=== PATIENT | male | born 1955 | race Caucasian/White ===

== ENCOUNTER → 2019-04-01 | Outpatient (CLI) | payer OTHER ==
[2019-04-01 09:54] LABS: Basophils % (A) 1 %; Eosinophils # (A) 0.2 k/uL (0-0.7); Eosinophils % (A) 5 %; HCT 46.6 % (39.0-53.0); HGB 15.1 gm/dL (13.0-17.5); Lymphocytes # (A) 1.1 k/uL (1.0-4.8); Lymphocytes % (A) 27 %; MCH 31.3 pg (25.0-35.0); MCHC 32.3 g/dL (31.0-37.0); Mean Platelet Volume 7.4; Monocytes # (A) 0.4 k/uL (0-1.0); Monocytes % (A) 11 %; Neutrophils # (A) 2.1 k/uL (1.3-7.7); Neutrophils % (A) 53 %; Platelet Count 187 k/uL (150-450); RBC 4.81 m/uL (4.30-5.90); RDW 12.7 % (11.5-15.5); WBC 3.9 k/uL (3.8-10.6)
[2019-04-01 11:49] LABS: Erythrocyte Sedimentation Rate 2 mm/hr (0-15)
[2019-04-01 16:49] LABS: Rheumatoid Factor 6 IU/mL (0-15)
[2019-04-01 16:57] LABS: Vitamin D 25 Hydroxy 51.3 ng/mL (30.0-100.0)
[2019-04-01 18:17] LABS: ALT 20 U/L (10-49); AST 23 U/L (14-35); C Reactive Protein <0.4 mg/dL (0.0-0.8); Calcium 8.9 mg/dL (8.7-10.3); Carbon Dioxide 26.7 mmol/L (21.6-31.8); Chloride 105 mmol/L (96-109); Creatine Kinase 157 U/L (35-257); Glucose 94 mg/dL (70-110); Potassium 4.7 mmol/L (3.5-5.5); Sodium 139 mmol/L (135-145); Uric Acid 5.1 mg/dL (3.7-8.7)
[2019-04-02 08:49] LABS: Angiotensin-1 Converting Enz. 84 U/L (8-52)
[2019-04-02 12:50] LABS: HLA B27 POSITIVE
[2019-04-07 08:29] LABS: Cyclic Citrullinated Pep IgG 6
== END | disposition home or self-care (01) ==
LOC: LABWHC1 08:45
PROVIDERS: ATTEND Orthopaedic Surgery
DX: M65.841 Other synovitis and tenosynovitis, right hand (principal); M65.842 Other synovitis and tenosynovitis, left hand; M65.319 Trigger thumb, unspecified thumb; M65.321 Trigger finger, right index finger; M65.331 Trigger finger, right middle finger
CPT/HCPCS: 36415; 80048; 82164; 82306; 82550; 83520; 84439; 84443; 84450; 84460; 84550; 85025; 85652; 86038; 86140; 86200; 86431; 86812

== ENCOUNTER 2019-04-22 21:46 | Inpatient (IN) | payer OTHER ==
[2019-04-22] MEDS ORDERED: SODIUM CHLORIDE 0.9% 1,000 ML IV STA (22:14)
--- NOTE | 2019-04-22 22:16 | ED ---
Arrhythmia/Palpitations HPI - General Chief Complaint: Arrhythmia/Palpitations Stated Complaint: Heart Racing Time Seen by Provider: 04/22/19 22:13 Source: patient, RN notes reviewed, old records reviewed Mode of arrival: wheelchair Limitations: no limitations - History of Present Illness Initial Comments: This is a 63-year-old male the ER for evaluation. Patient presents today for palpitations and PVCs. Patient has no chest pain no shortness of breath. Symptoms began morning and episodic throughout the day. No provocation factors. No chest pain. No current shortness of breath no fevers cough or congestion and he has had no recent drug or alcohol abuse MD Complaint: "heart racing", palpitations -: unknown Context: occurred during rest Associated Symptoms: denies other symptoms - Related Data Home Medications Medication Instructions Recorded Confirmed No Known Home Medications 04/22/19 04/22/19 Allergies Allergy/AdvReac Type Severity Reaction Status Date / Time No Known Allergies Allergy Verified 04/22/19 21:57 Review of Systems ROS Statement: Those systems with pertinent positive or pertinent negative responses have been documented in the HPI. ROS Other: All systems not noted in ROS Statement are negative. Past Medical History Past Medical History: Rheumatoid Arthritis (RA) Additional Past Medical History / Comment(s): hypoglycemia, hx. colon polyps History of Any Multi-Drug Resistant Organisms: None Reported Past Surgical History: Orthopedic Surgery Additional Past Surgical History / Comment(s): arthroscopies both knees Past Anesthesia/Blood Transfusion Reactions: No Reported Reaction Past Psychological History: No Psychological Hx Reported Smoking Status: Never smoker Past Alcohol Use History: Occasional Past Drug Use History: None Reported General Exam Limitations: no limitations General appearance: alert, in no apparent distress Head exam: Present: atraumatic, normocephalic, normal inspection Eye exam: Present: normal appearance, PERRL, EOMI. Absent: scleral icterus, conjunctival injection, periorbital swelling ENT exam: Present: normal exam, mucous membranes moist Neck exam: Present: normal inspection. Absent: tenderness, meningismus, lymphadenopathy Respiratory exam: Present: normal lung sounds bilaterally. Absent: respiratory distress, wheezes, rales, rhonchi, stridor Cardiovascular Exam: Present: normal rhythm, tachycardia, normal heart sounds. Absent: systolic murmur, diastolic murmur, rubs, gallop, clicks GI/Abdominal exam: Present: soft, normal bowel sounds. Absent: distended, tenderness, guarding, rebound, rigid Extremities exam: Present: normal inspection, full ROM, normal capillary refill. Absent: tenderness, pedal edema, joint swelling, calf tenderness Back exam: Present: normal inspection Neurological exam: Present: alert, oriented X3, CN II-XII intact Psychiatric exam: Present: normal affect, normal mood Skin exam: Present: warm, dry, intact, normal color. Absent: rash Course Vital Signs 04/22/19 04/22/19 04/22/19 21:51 22:35 23:31 Temperature 98.4 F Pulse Rate 100 73 Pulse Rate [ 67 Bilateral Pulse Oximetery] Respiratory 18 18 Rate Blood Pressure 146/89 155/75 O2 Sat by Pulse 96 96 Oximetry - Reevaluation(s) Reevaluation #1: 04/22/19 23:58 Medical record is reviewed Reevaluation #2: 04/22/19 23:58 Patient is having multiple be runs of PVCs EKG Findings - EKG Comments: EKG Findings:: EKG shows sinus rhythm rate of 73, TX 176, QRS 74, QTC 479 Medical Decision Making - Medical Decision Making 60 female the ER for evaluation palpitations. Patient found in the ER to be having significant runs of PVCs 10+ be runs isn't demented during that time extremity is able to feel them, no episodes of syncope. Patient be admitted for cardiology evaluation - Lab Data Result diagrams: 04/22/19 22:10 04/22/19 22:10 Lab Results 04/22/19 04/22/19 04/22/19 Range/Units 22:10 22:10 22:10 WBC 8.8 (3.8-10.6) k/uL RBC 4.85 (4.30-5.90) m/uL Hgb 15.5 (13.0-17.5) gm/dL Hct 46.7 (39.0-53.0) % MCV 96.3 (80.0-100.0) fL MCH 32.0 (25.0-35.0) pg MCHC 33.3 (31.0-37.0) g/dL RDW 12.8 (11.5-15.5) % Plt Count 167 (150-450) k/uL Neutrophils % 75 % Lymphocytes % 14 % Monocytes % 6 % Eosinophils % 2 % Basophils % 1 % Neutrophils # 6.7 (1.3-7.7) k/uL Lymphocytes # 1.3 (1.0-4.8) k/uL Monocytes # 0.5 (0-1.0) k/uL Eosinophils # 0.1 (0-0.7) k/uL Basophils # 0.0 (0-0.2) k/uL PT (9.0-12.0) sec INR (<1.2) APTT (22.0-30.0) sec Sodium 140 (137-145) mmol/L Potassium 3.9 (3.5-5.1) mmol/L Chloride 106 (98-107) mmol/L Carbon Dioxide 28 (22-30) mmol/L Anion Gap 6 mmol/L BUN 24 H (9-20) mg/dL Creatinine 0.98 (0.66-1.25) mg/dL Est GFR (CKD-EPI)AfAm >90 (>60 ml/min/1.73 sqM) Est GFR (CKD-EPI)NonAf 83 (>60 ml/min/1.73 sqM) Glucose 97 (74-99) mg/dL Plasma Lactic Acid Douglas (0.7-2.0) mmol/L Calcium 9.7 (8.4-10.2) mg/dL Phosphorus 3.4 (2.5-4.5) mg/dL Magnesium 2.0 (1.6-2.3) mg/dL Total Bilirubin 0.7 (0.2-1.3) mg/dL AST 32 (17-59) U/L ALT 35 (21-72) U/L Alkaline Phosphatase 79 (38-126) U/L Creatine Kinase 213 H (55-170) U/L CK-MB (CK-2) 3.2 H (0.0-2.4) ng/mL Troponin I <0.012 (0.000-0.034) ng/mL NT-Pro-B Natriuret Pep pg/mL Total Protein 7.5 (6.3-8.2) g/dL Albumin 4.8 (3.5-5.0) g/dL TSH 6.820 H (0.465-4.680) mIU/L 04/22/19 04/22/19 04/22/19 Range/Units 22:10 22:10 22:10 WBC (3.8-10.6) k/uL RBC (4.30-5.90) m/uL Hgb (13.0-17.5) gm/dL Hct (39.0-53.0) % MCV (80.0-100.0) fL MCH (25.0-35.0) pg MCHC (31.0-37.0) g/dL RDW (11.5-15.5) % Plt Count (150-450) k/uL Neutrophils % % Lymphocytes % % Monocytes % % Eosinophils % % Basophils % % Neutrophils # (1.3-7.7) k/uL Lymphocytes # (1.0-4.8) k/uL Monocytes # (0-1.0) k/uL Eosinophils # (0-0.7) k/uL Basophils # (0-0.2) k/uL PT 9.8 (9.0-12.0) sec INR 0.9 (<1.2) APTT 22.8 (22.0-30.0) sec Sodium (137-145) mmol/L Potassium (3.5-5.1) mmol/L Chloride (98-107) mmol/L Carbon Dioxide (22-30) mmol/L Anion Gap mmol/L BUN (9-20) mg/dL Creatinine (0.66-1.25) mg/dL Est GFR (CKD-EPI)AfAm (>60 ml/min/1.73 sqM) Est GFR (CKD-EPI)NonAf (>60 ml/min/1.73 sqM) Glucose (74-99) mg/dL Plasma Lactic Acid Douglas 1.3 (0.7-2.0) mmol/L Calcium (8.4-10.2) mg/dL Phosphorus (2.5-4.5) mg/dL Magnesium (1.6-2.3) mg/dL Total Bilirubin (0.2-1.3) mg/dL AST (17-59) U/L ALT (21-72) U/L Alkaline Phosphatase (38-126) U/L Creatine Kinase (55-170) U/L CK-MB (CK-2) (0.0-2.4) ng/mL Troponin I (0.000-0.034) ng/mL NT-Pro-B Natriuret Pep 90 pg/mL Total Protein (6.3-8.2) g/dL Albumin (3.5-5.0) g/dL TSH (0.465-4.680) mIU/L Disposition Clinical Impression: Ventricular premature beats, Tachycardia, Palpitations Disposition: ADMITTED IP TO THIS HOSP Condition: Fair Is patient prescribed a controlled substance at d/c from ED?: No Referrals: Jose Michael MD [Primary Care Provider] - 1-2 days
[2019-04-22 22:32] LABS: Basophils % (A) 1 %; Eosinophils # (A) 0.1 k/uL (0-0.7); Eosinophils % (A) 2 %; HCT 46.7 % (39.0-53.0); HGB 15.5 gm/dL (13.0-17.5); Lymphocytes # (A) 1.3 k/uL (1.0-4.8); Lymphocytes % (A) 14 %; MCHC 33.3 g/dL (31.0-37.0); MCV 96.3 fL (80.0-100.0); Mean Platelet Volume 7.4; Monocytes # (A) 0.5 k/uL (0-1.0); Monocytes % (A) 6 %; Neutrophils # (A) 6.7 k/uL (1.3-7.7); Neutrophils % (A) 75 %; Platelet Count 167 k/uL (150-450); RBC 4.85 m/uL (4.30-5.90); RDW 12.8 % (11.5-15.5); WBC 8.8 k/uL (3.8-10.6)
[2019-04-22 22:40] LABS: INR 0.9 (<1.2); Partial Thromboplastin Time 22.8 sec (22.0-30.0); Prothrombin Time 9.8 sec (9.0-12.0)
[2019-04-22 22:42] LABS: ALT 35 U/L (21-72); AST 32 U/L (17-59); African American GFR (CKD) >90 (>60 ml/min/1.73 sqM); Albumin 4.8 g/dL (3.5-5.0); Alkaline Phosphatase 79 U/L (38-126); Anion Gap 6 mmol/L; Blood Urea Nitrogen 24 mg/dL (9-20); Calcium 9.7 mg/dL (8.4-10.2); Carbon Dioxide 28 mmol/L (22-30); Chloride 106 mmol/L (98-107); Creatine Kinase 213 U/L (55-170); Glucose 97 mg/dL (74-99); Phosphorus 3.4 mg/dL (2.5-4.5); Potassium 3.9 mmol/L (3.5-5.1); Sodium 140 mmol/L (137-145); Total Bilirubin 0.7 mg/dL (0.2-1.3); Total Protein 7.5 g/dL (6.3-8.2)
[2019-04-22 23:07] LABS: Creatine Kinase MB 3.2 ng/mL (0.0-2.4); Troponin I <0.012 ng/mL (0.000-0.034)
[2019-04-22] MEDS ORDERED: METOPROLOL TARTRATE 5 MG/5 ML VIAL IVP STA (23:09)
[2019-04-22] MEDS ORDERED: NITROGLYCERIN SL TABS 0.4 MG TAB SUBLINGUAL PRN (23:55)
[2019-04-22] MEDS ORDERED: ASPIRIN 81 MG PO STA (23:55)
[2019-04-23] MEDS: SODIUM CHLORIDE 0.9% 1,000 ML IV SCH ×3 (00:35→19:34)
[2019-04-23 04:43] LABS: Cholesterol 195 mg/dL (<200); HDL Cholesterol 72 mg/dL (40-60); LDL Cholesterol,Calculated 115 mg/dL (0-99); Triglycerides 40 mg/dL (<150)
--- NOTE | 2019-04-23 08:43 | P.HPIM ---
History of Present Illness Chief complaint Palpitations History of present illness The patient is a 63-year-old gentleman who on off today experience a rapid heart rate associated with chest palpitations and racing. No actual chest pain or unusual shortness of breath. He did not have any syncopal episodes. The patient is usually very active. He runs a couple miles on a regular basis. Has done that for many years. 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 Usually none of this causes any problems other than some hand discomfort. States he has not had any symptoms like this in the past. No history of smoking or any excessive alcohol intake. He does have a sister who is 2 years older than his had to have some cardiac ablation therapy for arrhythmias. Past medical history Patient has had some bilateral knee problems for which she has had arthroscopic base. He does have history of colon polyps. But they have been hyperplastic. Last scope in 2013 was negative. No history of myocardial infarction, diabetes or stroke. No history of hypercholesterolemia. No smoking history. The patient is not on any regular medications. No known ALLERGIES. Review of systems As mentioned above patient denies any chest pain or shortness of breath. No fever or chills or cough. No unusual headaches. No nausea vomiting. He has had some left upper quadrant discomfort without nausea or vomiting. No urinary or bowel symptomatology. No blood in the stool. The pain seems to be related to the left upper rib cage. Patient denies any unusual leg edema or leg pain. As mentioned he is fairly active is a runner. And has been active as a runner for many years. Social history Once again no history of any heavy alcohol intake or smoking. He lives locally in the [facility]. He is an avid runner. Works on a lawn service. Is very active. He is . Family history Father of a brain tumor and a stroke in his 80s. Mother apparently had breast cancer but then did have a myocardial infarction. Apparently he has an older sister that has had some cardiac arrhythmias and had to have an ablation. Patient is had a brother who apparently is in good health. Physical examination Presently his pulse is in the 40s. Blood pressure 112/74. He is 97% saturated. Normal temperature. Head and neck exam is unremarkable. No definite adenopathy or thyromegaly. Lungs are clear to auscultation. Heart tones were for the most part regular on my examination. No definite murmurs or rubs appreciated. Abdomen is soft and nontender without rebound or guarding or masses detected. Genital and rectal exam deferred. Neurologically he is alert. Cranial nerves intact. No focal neurological deficits noted. Laboratory CBC was unremarkable with a white count of 8.8, hemoglobin 15.9 and platelet count 167. INR 0.9 with a PTT of 22.8. Electrolytes were normal with a sodium 140 and a potassium 3.9. BUN slightly elevated at 24 with creatinine of 0.98 given him a GFR of 83. Blood sugar 97 Calcium normal at 9.7 with a phosphorus 3.4 and magnesium 2.0. CK was elevated to 13 with CK-MB elevated at 3.2. Troponins though have been less than 0.0122. BNP was 90. Albumin 4.8 LDL cholesterol 1:15 with an HDL of 72 and a total of 195. Triglycerides were 40. TSH was 6.8 The patient actually has 2 EKGs on the chart with his name. It appears that the initial one done on April 22 or showed a sinus rhythm without any changes. The EKG dated April 23 showed a wide QRS complex. Marked T-wave abnormality. Nonspecific intraventricular block. Impressions 63-year-old gentleman with recurrent palpitations and fluctuating EKG pattern. Apparently pulses of irregular rhythm per emergency room physician with PVCs and and tachycardia. possible hypothyroidism based on elevated TSH. 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 No definite rheumatoid arthritis history at this time. At this time we will obtain cardiology consult. Echocardiogram. Free T4 and TSH. Continue to monitor. Chest x-ray. Further recommendations pending clinical response and results of above as discussed with patient at bedside in the emergency room this morning. Past Medical History Past Medical History: Rheumatoid Arthritis (RA) Additional Past Medical History / Comment(s): hypoglycemia, hx. colon polyps History of Any Multi-Drug Resistant Organisms: None Reported Past Surgical History: Orthopedic Surgery Additional Past Surgical History / Comment(s): arthroscopies both knees Past Anesthesia/Blood Transfusion Reactions: No Reported Reaction Past Psychological History: No Psychological Hx Reported Smoking Status: Never smoker Past Alcohol Use History: Occasional Past Drug Use History: None Reported Medications and Allergies Home Medications Medication Instructions Recorded Confirmed Type No Known Home Medications 04/22/19 04/22/19 History Allergies Allergy/AdvReac Type Severity Reaction Status Date / Time No Known Allergies Allergy Verified 04/22/19 21:57 Physical Exam Vitals: Vital Signs Temp Pulse Pulse Resp BP Pulse Ox 04/23/19 07:00 42 L 43 L 04/23/19 05:30 41 L 112/74 97 04/23/19 05:00 41 L 112/69 99 04/23/19 04:30 43 L 107/68 99 04/23/19 04:00 44 L 110/72 99 04/23/19 03:30 46 L 113/74 98 04/23/19 03:00 47 L 117/72 98 04/23/19 02:30 50 L 138/78 99 04/23/19 02:18 90 04/23/19 02:00 47 L 18 117/74 99 04/23/19 01:30 47 L 125/72 99 04/23/19 01:00 51 L 128/85 100 04/23/19 00:37 63 152/93 98 04/23/19 00:30 83 152/93 98 04/23/19 00:00 68 155/75 96 04/22/19 23:31 73 18 155/75 96 04/22/19 22:35 67 04/22/19 21:51 98.4 F 100 18 146/89 96 Intake and Output 04/22/19 04/23/19 04/23/19 22:59 06:59 14:59 Other: Weight 82.1 kg Results CBC & Chem 7: 04/22/19 22:10 04/22/19 22:10 Labs: Abnormal Lab Results - Last 24 Hours (Table) 04/22/19 04/22/19 04/23/19 Range/Units 22:10 22:10 04:18 BUN 24 H (9-20) mg/dL Creatine Kinase 213 H (55-170) U/L CK-MB (CK-2) 3.2 H (0.0-2.4) ng/mL LDL Cholesterol, Calc 115 H (0-99) mg/dL HDL Cholesterol 72 H (40-60) mg/dL TSH 6.820 H (0.465-4.680) mIU/L
[2019-04-23 09:38] VITALS: BMI 23.8
--- NOTE | 2019-04-23 09:50 | XR ---
EXAMINATION TYPE: XR chest 2V DATE OF EXAM: 04/23/2019 COMPARISON: NONE HISTORY: Palpitations TECHNIQUE: Frontal and lateral views of the chest are obtained on 3 images. FINDINGS: There is no focal air space opacity, pleural effusion, or pneumothorax seen. The cardiac silhouette size is within normal limits. The osseous structures are intact. There are overlying car diac leads. Prominent lung volumes could be indicative of underlying COPD. IMPRESSION: No acute cardiopulmonary process.
[2019-04-23] MEDS: ASPIRIN 325 MG TAB PO SCH (09:51)
[2019-04-23] MEDS: METOPROLOL TARTRATE 50 MG TAB PO SCH ×2 (09:51→19:38)
[2019-04-23] MEDS ORDERED: POTASSIUM CHLORIDE ER 20 MEQ TAB.ER PO SCH (10:00)
--- NOTE | 2019-04-23 10:30 | P.CRDCN ---
History of Present Illness Consult date: 04/23/19 Requesting physician: Jose Michael Reason for Consult (text): VAudrey tach Chief complaint: Palpitations History of present illness: This is a pleasant 63-year-old gentleman with no prior documented history of hypertension, no diabetes, no hyperlipidemia, he is a nonsmoker, rarely drinks alcohol, his sister had an ablation procedure done in the past, no family history of premature coronary artery disease, he is also a runner, he's been running for the past 40 years. Patient presented to the hospital yesterday with symptoms of palpitations, he denies any associated shortness of breath, no dizziness or lightheadedness, no chest discomfort. He states it felt like he had too much caffeine, he felt somewhat jittery. Because of these symptoms he came to the emergency room for further evaluation. His initial EKG showed a normal sinus rhythm with no acute changes. Subsequent EKG showed a wide complex rhythm suggesting a slow ventricular tachycardia. Patient did go back into normal sinus rhythm, he did have some occasional PVCs and couplets, earlier this morning he had a run of sustained slow ventricular tachycardia for over a minute. He did develop palpitations at this time. His blood pressure on arrival here 146/80 with a heart rate of 100, 96% on room air. Blood pressure this morning 146/76 with a heart rate in the 50s, 99% on 2 L of oxygen. The patient had been given 5 mg of IV Lopressor and started on a ski milligrams a beta vivienne twice a day. This was held this morning because of the heart rate in the 40s to 50s. CBC is normal, sodium 140, potassium 3.9, BUN 24 and creatinine 0.8, magnesium 2.0. Troponins are negative 2, TSH level 6.8, cholesterol 195, LDL 1:15, HDL 72, triglycerides 40. At the time of my examination this morning, the patient feels well, symptom-free. His is at bedside. Past Medical History Past Medical History: Rheumatoid Arthritis (RA) Additional Past Medical History / Comment(s): hypoglycemia, hx. colon polyps History of Any Multi-Drug Resistant Organisms: None Reported Past Surgical History: Orthopedic Surgery Additional Past Surgical History / Comment(s): arthroscopies both knees Past Anesthesia/Blood Transfusion Reactions: No Reported Reaction Past Psychological History: No Psychological Hx Reported Smoking Status: Never smoker Past Alcohol Use History: Occasional Past Drug Use History: None Reported - Past Family History Mother Family Medical History: Cancer Additional Family Medical History / Comment(s): breast Father Additional Family Medical History / Comment(s): brain tumor Medications and Allergies Home Medications Medication Instructions Recorded Confirmed Type No Known Home Medications 04/22/19 04/22/19 History Allergies Allergy/AdvReac Type Severity Reaction Status Date / Time No Known Allergies Allergy Verified 04/22/19 21:57 Physical Exam Vitals: Vital Signs Temp Pulse Pulse Resp BP BP Pulse Ox 04/23/19 08:00 97.5 F L 53 L 16 146/76 99 04/23/19 07:00 42 L 43 L 04/23/19 05:30 41 L 112/74 97 04/23/19 05:00 41 L 112/69 99 04/23/19 04:30 43 L 107/68 99 04/23/19 04:00 44 L 110/72 99 04/23/19 03:30 46 L 113/74 98 04/23/19 03:00 47 L 117/72 98 04/23/19 02:30 50 L 138/78 99 04/23/19 02:18 90 04/23/19 02:00 47 L 18 117/74 99 04/23/19 01:30 47 L 125/72 99 04/23/19 01:00 51 L 128/85 100 04/23/19 00:37 63 152/93 98 04/23/19 00:30 83 152/93 98 04/23/19 00:00 68 155/75 96 04/22/19 23:31 73 18 155/75 96 04/22/19 22:35 67 04/22/19 21:51 98.4 F 100 18 146/89 96 Intake and Output 04/22/19 04/23/19 04/23/19 22:59 06:59 14:59 Other: Weight 82.1 kg PHYSICAL EXAMINATION: GENERAL: 63-year-old gentleman in no acute distress at the time of my examination HEENT: Head is atraumatic, normocephalic. Pupils equal, round. Sclera anicteric. Conjunctiva are clear. Mucous membranes of the mouth are moist. Neck is supple. There is no elevated jugular venous pressure. No carotid bruit is heard. HEART EXAMINATION: Heart S1, S2 normal. No murmur or gallop heard. CHEST EXAMINATION: Lungs are clear to auscultation and precussion. No chest wall tenderness is noted on palpation or with deep breathing. ABDOMEN: Soft, nontender. Bowel sounds are heard. No organomegaly noted. EXTREMITIES: 2+ peripheral pulses with no evidence of peripheral edema and no calf tenderness noted. NEUROLOGIC patient is awake, alert and oriented 3 . Results 04/22/19 22:10 04/22/19 22:10 Cardiac Enzymes 04/22/19 04/22/19 04/23/19 Range/Units 22:10 22:10 04:18 AST 32 (17-59) U/L CK-MB (CK-2) 3.2 H (0.0-2.4) ng/mL Troponin I <0.012 <0.012 (0.000-0.034) ng/mL Coagulation 04/22/19 Range/Units 22:10 PT 9.8 (9.0-12.0) sec APTT 22.8 (22.0-30.0) sec Lipids 04/23/19 Range/Units 04:18 Triglycerides 40 (<150) mg/dL Cholesterol 195 (<200) mg/dL HDL Cholesterol 72 H (40-60) mg/dL CBC 04/22/19 Range/Units 22:10 WBC 8.8 (3.8-10.6) k/uL RBC 4.85 (4.30-5.90) m/uL Hgb 15.5 (13.0-17.5) gm/dL Hct 46.7 (39.0-53.0) % Plt Count 167 (150-450) k/uL Comprehensive Metabolic Panel 04/22/19 Range/Units 22:10 Sodium 140 (137-145) mmol/L Potassium 3.9 (3.5-5.1) mmol/L Chloride 106 (98-107) mmol/L Carbon Dioxide 28 (22-30) mmol/L BUN 24 H (9-20) mg/dL Creatinine 0.98 (0.66-1.25) mg/dL Glucose 97 (74-99) mg/dL Calcium 9.7 (8.4-10.2) mg/dL AST 32 (17-59) U/L ALT 35 (21-72) U/L Alkaline Phosphatase 79 (38-126) U/L Total Protein 7.5 (6.3-8.2) g/dL Albumin 4.8 (3.5-5.0) g/dL Current Medications Generic Name Dose Route Start Last Admin Trade Name Freq PRN Reason Stop Dose Admin Aspirin 325 mg 04/23/19 09:00 04/23/19 09:51 Aspirin PO 325 mg DAILY SHEYLA Administration Sodium Chloride 1,000 mls @ 100 mls/hr 04/22/19 23:45 04/23/19 00:35 Saline 0.9% IV 100 mls/hr .Q10H SHEYLA Administration Metoprolol Tartrate 50 mg 04/23/19 09:00 04/23/19 09:51 Lopressor PO Not Given BID HSEYLA Nitroglycerin 0.4 mg 04/22/19 23:55 Nitrostat SUBLINGUAL Q5M PRN Chest Pain Intake and Output 04/22/19 04/23/19 04/23/19 22:59 06:59 14:59 Other: Weight 82.1 kg 04/22/19 22:10 04/22/19 22:10 EKG Interpretations (text) Initial EKG shows normal sinus rhythm with no acute changes. Subsequent EKG showed a wide complex tachycardia with a heart rate in the 100. Assessment and Plan Plan: Assessment and plan #1 symptoms of palpitations, EKG suggestive of a wide complex tachycardia, possible slow ventricular tachycardia with a heart rate of 100. Patient is having intermittent runs of wide-complex tachycardia. #2 hypothyroidism, TSH 6.8 Plan We will obtain an echocardiogram with Doppler study. At this time we will hold off on initiating amiodarone because of the bradycardia. We will hold the beta vivienne at this time. We will request Dr. Nickerson to evaluate the patient in consultation. Potassium was 3.9, we will give 20 mEq of potassium. Further recommendations to follow. DNP note has been reviewed, I agree with a documented findings and plan of care. Patient was seen and examined.
--- NOTE | 2019-04-23 12:27 | ECHOF ---
Referral Reason:LVF MEASUREMENTS -------- HEIGHT: 180.3 cm WEIGHT: 82.1 kg BP: IVSd: 1.4 cm (0.6 - 1.1) LVIDd: 4.6 cm (3.9 - 5.3) LVPWd: 1.3 cm (0.6 - 1.1) IVSs: 1.9 cm LVIDs: 2.5 cm LVPWs: 2.0 cm LAESV Index (A-L): 25.08 ml/m Ao Diam: 3.5 cm (2.0 - 3.7) AV Cusp: 2.5 cm (1.5 - 2.6) LA Diam: 2.8 cm (2.7 - 3.8) MV EXCURSION: 21.518 mm (> 18.000) MV EF SLOPE: 153 mm/s (70 - 150) EPSS: 0.9 cm MV E Ravindra: 0.74 m/s MV DecT: 232 ms MV A Ravindra: 0.63 m/s MV E/A Ratio: 1.17 RAP: 15.00 mmHg RVSP: 38.25 mmHg FINDINGS -------- Sinus rhythm with extra systolic beats. This was a technically good study. The left ventricular size is normal. There is mild concentric left ventricular hypertrophy. Overa ll left ventricular systolic function is normal with, an EF between 55 - 60 %. The right ventricle is normal in size. Normal LA size by volume 22+/-6 ml/m2. The right atrial size is normal. Interatrial and interventricular septum intact. The aortic valve is trileaflet, and appears structurally normal. No aortic stenosis or regurgitation. The mitral valve is normal. Mild mitral regurgitation is present. Mild tricuspid regurgitation present. There is mild pulmonary hypertension. The right ventricular systolic pressure, as measured by Doppler, is 38.25mmHg. There is no pulmonic regurgitation present. The aortic root size is normal. The inferior vena cava is mildly dilated. There is no pericardial effusion. CONCLUSIONS -------- 1. Sinus rhythm with extra systolic beats. 2. This was a technically good study. 3. The left ventricular size is normal. 4. There is mild concentric left ventricular hypertrophy. 5. Overall left ventricular systolic function is normal with, an EF between 55 - 60 %. 6. Normal LA size by volume 22+/-6 ml/m2. 7. Interatrial and interventricular septum intact. 8. The aortic valve is trileaflet, and appears structurally normal. No aortic stenosis or regurgitati on. 9. Mild mitral regurgitation is present. 10. Mild tricuspid regurgitation present. 11. There is mild pulmonary hypertension. 12. There is no pulmonic regurgitation present. 13. The aortic root size is normal. 14. The inferior vena cava is mildly dilated. 15. There is no pericardial effusion. [employer]ER: Nellie Donis RDCS
[2019-04-23 12:46] LABS: T4, Free (Free Thyroxine) 0.8 ng/dL (0.78-2.19)
[2019-04-24 00:09] LABS: African American GFR (CKD) >90 (>60 ml/min/1.73 sqM); Anion Gap 0 mmol/L; Blood Urea Nitrogen 16 mg/dL (9-20); Calcium 8.6 mg/dL (8.4-10.2); Carbon Dioxide 28 mmol/L (22-30); Chloride 109 mmol/L (98-107); Glucose 102 mg/dL (74-99); Potassium 4.2 mmol/L (3.5-5.1); Sodium 137 mmol/L (137-145)
[2019-04-24] MEDS: SODIUM CHLORIDE 0.9% 1,000 ML IV SCH ×2 (05:20→16:50)
[2019-04-24 07:31] LABS: Basophils % (A) 0 %; Eosinophils # (A) 0.2 k/uL (0-0.7); Eosinophils % (A) 3 %; HGB 15.3 gm/dL (13.0-17.5); Lymphocytes # (A) 1.4 k/uL (1.0-4.8); Lymphocytes % (A) 25 %; MCH 31.9 pg (25.0-35.0); MCHC 31.9 g/dL (31.0-37.0); Mean Platelet Volume 7.2; Monocytes # (A) 0.4 k/uL (0-1.0); Monocytes % (A) 7 %; Neutrophils # (A) 3.4 k/uL (1.3-7.7); Neutrophils % (A) 63 %; Platelet Count 166 k/uL (150-450); WBC 5.5 k/uL (3.8-10.6)
[2019-04-24 07:43] LABS: African American GFR (CKD) >90 (>60 ml/min/1.73 sqM); Anion Gap 4 mmol/L; Blood Urea Nitrogen 14 mg/dL (9-20); Calcium 8.7 mg/dL (8.4-10.2); Carbon Dioxide 29 mmol/L (22-30); Chloride 107 mmol/L (98-107); Glucose 91 mg/dL (74-99); Potassium 4.4 mmol/L (3.5-5.1); Sodium 140 mmol/L (137-145)
[2019-04-24] MEDS: ASPIRIN 325 MG TAB PO SCH (08:02)
--- NOTE | 2019-04-24 08:20 | P.PN ---
Progress Note - Text The patient is a 63-year-old gentleman who presented with palpitations and was found to have a wide-complex tachycardia considered to be possibly slow ventricular tachycardia. Patient has had no prior cardiac history and is an avid runner. He denies any chest pain or unusual shortness of breath. Last vital signs reveal temperature 97.8 with a pulse of 48. It has been as high as 63. Respiratory rate is 16. Blood pressure 119/75 and he is 95% saturated on room air. Lung and heart examination is clear and regular at this time. No unusual edema. No neurological deficits. Laboratory Initial TSH was elevated at 6.82 with a normal T3 and T4. Electrolytes today reveal sodium 140 with potassium 4.1. GFR is greater than 90. Calcium is 8.7. Magnesium was 2.0 yesterday. Troponins 3 were less than 0.012. LDL cholesterol is 115 with an HDL of 72. Total is 195. Triglycerides are normal at 40. Chest x-ray did not show any acute cardiopulmonary process. Echocardiogram showed a sinus rhythm with extra systolic beats. LV size was normal. There was some mild concentric LV hypertrophy. Ejection fraction was 55-60%. There was some mild pulmonary hypertension. There was normal left atrial size. Normal aortic root size. No pericardial effusion noted. Impressions cardiac arrhythmia. Palpitations. Patient remains on metoprolol and aspirin. We'll await further recommendations from cardiology as discussed with patient today at bedside.
[2019-04-24] MEDS: METOPROLOL TARTRATE 50 MG TAB PO SCH (09:08)
--- NOTE | 2019-04-24 16:51 | P.PN ---
Subjective Progress Note Date: 04/24/19 This patient is admitted with palpitations and and evidence of accelerated ventricular rhythm/slow V. tach originating from left lateral wall. I discussed the case with the Dr. Nickerson. He felt that patient could be candidate for ablation. He is going to talk to the patient this evening. Patient is bra dycardic at rest. Hasn't been receiving beta vivienne. Patient is critically stable Objective - Vital Signs Vital signs: Vital Signs Temp 98.0 F 04/24/19 15:32 Pulse 45 L 04/24/19 15:32 Resp 18 04/24/19 15:32 BP 124/79 04/24/19 15:32 Pulse Ox 96 04/24/19 15:32 Intake & Output 04/23/19 04/24/19 04/24/19 18:59 06:59 18:59 Intake Total 260 600 680 Balance 260 600 680 Weight 82.9 kg Intake: Oral 260 600 680 Other: Voiding Method Toilet # Voids 2 1 2 - Exam GENERAL EXAM: Patient is alert and oriented and doesn't appear to be in any a cute distress HEENT: Normocephalic. Normal reaction of pupils, equal size, normal range of extraocular motion. No erythema or exudates in the throat. NECK: No masses, no nuchal rigidity. CHEST: No chest wall deformity. LUNGS: Equal air entry with no crackles or wheeze. HEART: S1 and S2 normal with no audible mumurs or gallops. Regular rhythm, femorals equal on both sides.. ABDOMEN: No hepatosplenomegaly, normal bowel sounds, no guarding or rigidity. SKIN: No rashes CENTRAL NERVOUS SYSTEM: No focal deficits. EXTREMITIES: No cyanosis, clubbing or edema. - Labs CBC & Chem 7: 04/24/19 06:59 04/24/19 06:59 Labs: Abnormal Lab Results - Last 24 Hours (Table) 04/23/19 Range/Units 23:34 Chloride 109 H (98-107) mmol/L Glucose 102 H (74-99) mg/dL Assessment and Plan (1) Ventricular tachycardia Current Visit: Yes Status: Acute Code(s): I47.2 - VENTRICULAR TACHYCARDIA SNOMED Code(s): 88162334 Plan: Patient is admitted with symptomatic slow ventricular tachycardia. Waiting to be evaluated by Dr. Nickerson
--- NOTE | 2019-04-24 20:15 | P.CRDCN ---
History of Present Illness History of present illness: This is Dr. Nickerson dictating a consult on this patient The patient was interviewed and examined by me IMPRESSION / ASSESSMENT: Episodes of wide complex rhythm, ventricular in origin, some manifesting as an escape mechanism with preceding sinus bradycardia Others manifesting as an accelerated rhythm and not preceded by sinus bradycardia Mostly at rest Heart rates always under 100 beats a minute Likely diagnosis accelerated idioventricular rhythm Normal 2-D echo No chest x-ray Normal electrolytes Evidence of sinus bradycardia Patient runs and exercises regularly. He is always been a runner PLAN: Start hyoscyamine 0.75 mg long-acting every 12 Stop metoprolol Observe over the weekend to see if antibiotic mechanisms and slight increase in heart rate suppresses the rhythm This would be indicative of a conduction system disease, manifesting as AI VR On Saturday I would perform an excised stress test to look for any exercise- induced VT with a morphology similar to AI VR Further management thereafter HPI Patient presented with palpitations and feeling funny. No associated dizziness or loss of consciousness Several years back here episodes of dizziness and presyncope associated with nausea but his blood glucose was in the 50s This time he had no nausea no dizziness simply palpitations No family history of sudden no family history of conduction system disease requiring permanent pacemaker implantation ROS: No fever chills or rigors, no cough, phlegm or expectoration, no nausea, vomiting or diarrhea, no hematuria, dysuria, no musculoskeletal complaints, no strokes or seizures, no skin lesions. EXAMINATION: Normal examination normal heart sounds normal S1 normal S2 Normal breath sounds no rhonchi no crackles Abdomen soft nontender No current bruits Vitals are stable blood pressure is normal Endocrine sinus bradycardia noted Not receiving metoprolol for the last 24 hours. He did receive metoprolol in the ER REVIEW OF LABS, ECG & MEDICAL DATA Normal labs normal electrolytes Chest x-ray is normal 2-D echo and Doppler studies normal Past Medical History Past Medical History: Rheumatoid Arthritis (RA) Additional Past Medical History / Comment(s): hypoglycemia, hx. colon polyps History of Any Multi-Drug Resistant Organisms: None Reported Past Surgical History: Orthopedic Surgery Additional Past Surgical History / Comment(s): arthroscopies both knees Past Anesthesia/Blood Transfusion Reactions: No Reported Reaction Past Psychological History: No Psychological Hx Reported Smoking Status: Never smoker Past Alcohol Use History: Occasional Past Drug Use History: None Reported - Past Family History Mother Family Medical History: Cancer Additional Family Medical History / Comment(s): breast Father Additional Family Medical History / Comment(s): brain tumor Medications and Allergies Home Medications Medication Instructions Recorded Confirmed Type No Known Home Medications 04/22/19 04/22/19 History Allergies Allergy/AdvReac Type Severity Reaction Status Date / Time No Known Allergies Allergy Verified 04/22/19 21:57 Physical Exam Vitals: Vital Signs Temp Pulse Resp BP Pulse Ox 04/24/19 15:32 98.0 F 45 L 18 124/79 96 04/24/19 11:56 45 L 16 124/68 97 04/24/19 08:00 97.7 F 45 L 16 127/79 96 04/24/19 03:52 97.8 F 48 L 16 119/75 95 04/23/19 23:17 44 L 18 132/79 97 Intake and Output 04/24/19 04/24/19 04/24/19 06:59 14:59 22:59 Intake Total 680 360 Balance 680 360 Intake: Oral 680 360 Other: Voiding Method Toilet # Voids 1 2 Weight 82.9 kg Results 04/24/19 06:59 04/24/19 06:59 CBC 04/24/19 Range/Units 06:59 WBC 5.5 (3.8-10.6) k/uL RBC 4.80 (4.30-5.90) m/uL Hgb 15.3 (13.0-17.5) gm/dL Hct 48.0 (39.0-53.0) % Plt Count 166 (150-450) k/uL Comprehensive Metabolic Panel 04/23/19 04/24/19 Range/Units 23:34 06:59 Sodium 137 140 (137-145) mmol/L Potassium 4.2 4.4 (3.5-5.1) mmol/L Chloride 109 H 107 (98-107) mmol/L Carbon Dioxide 28 29 (22-30) mmol/L BUN 16 14 (9-20) mg/dL Creatinine 0.87 0.86 (0.66-1.25) mg/dL Glucose 102 H 91 (74-99) mg/dL Calcium 8.6 8.7 (8.4-10.2) mg/dL Current Medications Generic Name Dose Route Start Last Admin Trade Name Freq PRN Reason Stop Dose Admin Aspirin 325 mg 04/23/19 09:00 04/24/19 08:02 Aspirin PO 325 mg DAILY [facility] Administration Hyoscyamine 0.75 mg 04/24/19 20:10 Levbid PO BID [facility] Sodium Chloride 1,000 mls @ 100 mls/hr 04/22/19 23:45 04/24/19 16:50 Saline 0.9% IV Not Given .Q10H [facility] Nitroglycerin 0.4 mg 04/22/19 23:55 Nitrostat SUBLINGUAL Q5M PRN Chest Pain Intake and Output 04/24/19 04/24/19 04/24/19 06:59 14:59 22:59 Intake Total 680 360 Balance 680 360 Intake: Oral 680 360 Other: Voiding Method Toilet # Voids 1 2 Weight 82.9 kg 04/24/19 06:59 04/24/19 06:59
[2019-04-24] MEDS: HYOSCYAMINE SULFATE 0.375 MG TAB.ER.12H PO SCH ×2 (20:32→21:42)
[2019-04-25] MEDS: SODIUM CHLORIDE 0.9% 1,000 ML IV SCH ×3 (01:46→21:32)
[2019-04-25] MEDS: ASPIRIN 325 MG TAB PO SCH (08:48)
[2019-04-25] MEDS: HYOSCYAMINE SULFATE 0.375 MG TAB.ER.12H PO SCH ×2 (08:48→21:32)
--- NOTE | 2019-04-25 11:07 | P.PN ---
Progress Note - Text The patient is a 63-year-old gentleman who presented with palpitations and found to have a wide complex tachycardia of ventricular origin. Patient has no previous cardiac history but he is an avid runner. Presently he is sitting up in bed in no acute distress. Vital signs show a temperature of 98 with a pulse of 49 and respirations 16. Blood pressure 104/58 and he is 95% saturated. Lung and heart exam is clear and regular. No edema. No neurological changes. TSH of 6.8 with a normal T4 and T3. Troponins have been normal 3. LDL cholesterol 115. Cardiology note regarding. Impressions The patient with palpitations and episodes of a wide complex rhythm of ventricular origin. Some apparently manifesting per cardiology and as an escape rhythm although at other times not proceeded by bradycardia. Patient has been started on hyoscyamine and is being monitored. He still appears to have a sinus bradycardia. Cardiology plans on doing a exercise tests to evaluate for any exercise-induced ventricular tachycardia. Will not add any treatment at this time for possible hyperthyroidism. We'll likely repeat testing in the future and consider further management at that time. Patient at this time does not appear to be having any symptoms related to his thyroid status. Dr. Calles counselor education professor for me over the weekend if any concerns or problems.
--- NOTE | 2019-04-25 16:51 | P.PN ---
Subjective Progress Note Date: 04/25/19 This patient is admitted with palpitations and and evidence of accelerated ventricular rhythm/slow V. tach originating from left lateral wall. I discussed the case with the Dr. Nickerson. He felt that patient could be candidate for ablation. He is going to talk to the patient this evening. Patient is bra dycardic at rest. Hasn't been receiving beta vivienne. Patient is critically stable. 04/25/2019: Patient is clinically stable. Seen by Dr. Nickerson. He is going to have a stress test on Saturday. Patient otherwise critically stable. Patient is advised to be active. Lungs are clear. Heart is regular. No JVD or peripheral edema Objective - Vital Signs Vital signs: Vital Signs Temp 97.6 F 04/25/19 15:28 Pulse 51 L 04/25/19 15:28 Resp 16 04/25/19 15:28 BP 116/75 04/25/19 15:28 Pulse Ox 98 04/25/19 15:28 Intake & Output 04/24/19 04/25/19 04/25/19 18:59 06:59 18:59 Intake Total 5791 356 4163 Balance 9107 409 4203 Weight 81.8 kg Intake: IV 0 Sodium Chloride 0.9% 1, 0 000 ml @ 100 mls/hr IV . Q10H [facility] Rx#:[id number] Oral 3653 207 4434 Other: Voiding Method Toilet Toilet # Voids 2 1 - Exam GENERAL EXAM: Patient is alert and oriented and doesn't appear to be in any acute distress HEENT: Normocephalic. Normal reaction of pupils, equal size, normal range of extraocular motion. No erythema or exudates in the throat. NECK: No masses, no nuchal rigidity. CHEST: No chest wall deformity. LUNGS: Equal air entry with no crackles or wheeze. HEART: S1 and S2 normal with no audible mumurs or gallops. Regular rhythm, femorals equal on both sides.. ABDOMEN: No hepatosplenomegaly, normal bowel sounds, no guarding or rigidity. SKIN: No rashes CENTRAL NERVOUS SYSTEM: No focal deficits. EXTREMITIES: No cyanosis, clubbing or edema. - Labs CBC & Chem 7: 04/24/19 06:59 04/24/19 06:59 Assessment and Plan (1) Ventricular tachycardia Current Visit: Yes Status: Acute Code(s): I47.2 - VENTRICULAR TACHYCARDIA SNOMED Code(s): 52822221 Plan: Patient is admitted with symptomatic slow ventricular tachycardia. Waiting to be evaluated by Dr. Nickerson. 04/25/2019: Patient has remained chronically stable. Waiting to have stress test on Saturday
[2019-04-26] MEDS: SODIUM CHLORIDE 0.9% 1,000 ML IV SCH ×2 (08:51→20:16)
[2019-04-26] MEDS: HYOSCYAMINE SULFATE 0.375 MG TAB.ER.12H PO SCH ×2 (08:56→20:26)
[2019-04-26] MEDS: ASPIRIN 325 MG TAB PO SCH (08:56)
--- NOTE | 2019-04-26 10:33 | P.PN ---
Progress Note - Text The patient is a 63-year-old gentleman who presented with palpitations and found to have a wide complex tachycardia of ventricular origin consistent with slow ventricular tachycardia. He has no previous cardiac history. He is an avid runner and is generally in good shape. No chest pain or unusual shortness of breath. The patient is sitting up in his room. Alert and oriented. Last vital signs show temperature 98.6 with a pulse of 49 and respirations 16. Blood pressure 103/58 and he is 94% saturated on room air. Respirations are normal. Heart rate is slightly bradycardic. There are no neurological changes. No new labs this morning. Impressions and plans Palpitations associated with ventricular tachycardia. Patient is presently on hyoscyamine and is being monitored by cardiology. There is anticipation for stress testing tomorrow. Also possibility of ablation therapy in the future as per cardiology. And apparently these have been discussed with the patient. Also discussed with patient this morning. Continue to monitor. Dr. Calles continuous still operator for me if any concerns or problems should arise.
--- NOTE | 2019-04-26 10:54 | P.PN ---
Subjective Progress Note Date: 04/26/19 This patient is admitted with palpitations and and evidence of accelerated ventricular rhythm/slow V. tach originating from left lateral wall. I discussed the case with the Dr. Nickerson. He felt that patient could be candidate for ablation. He is going to talk to the patient this evening. Patient is br adycardic at rest. Hasn't been receiving beta vivienne. Patient is critically stable. 04/25/2019: Patient is clinically stable. Seen by Dr. Nickerson. He is going to have a stress test on Saturday. Patient otherwise critically stable. Patient is advised to be active. Lungs are clear. Heart is regular. No JVD or peripheral edema 04/26:Patient remains hemodynamically stable. He has had no further incidents of V. tach. He is scheduled Saturday for stress test and most likely discharge home later in the day. Objective - Vital Signs Vital signs: Vital Signs Temp 98.6 F 04/26/19 08:00 Pulse 49 L 04/26/19 08:00 Resp 16 04/26/19 08:00 BP 103/58 04/26/19 08:00 Pulse Ox 94 L 04/26/19 08:00 Intake & Output 04/25/19 04/26/19 04/26/19 18:59 06:59 18:59 Intake Total 2700 600 240 Balance 2700 600 240 Weight 81.7 kg Intake: IV 0 Sodium Chloride 0.9% 1, 0 000 ml @ 100 mls/hr IV . Q10H [facility] Rx#:[id number] Oral 2700 600 240 Other: Voiding Method Toilet Toilet Toilet # Voids 2 1 - Exam GENERAL EXAM: Patient is alert and oriented and doesn't appear to be in any acute distress HEENT: Normocephalic. Normal reaction of pupils, equal size, normal range of extraocular motion. No erythema or exudates in the throat. NECK: No masses, no nuchal rigidity. CHEST: No chest wall deformity. LUNGS: Equal air entry with no crackles or wheeze. HEART: S1 and S2 normal with no audible mumurs or gallops. Regular rhythm, femorals equal on both sides.. ABDOMEN: No hepatosplenomegaly, normal bowel sounds, no guarding or rigidity. SKIN: No rashes CENTRAL NERVOUS SYSTEM: No focal deficits. EXTREMITIES: No cyanosis, clubbing or edema. - Labs CBC & Chem 7: 04/24/19 06:59 04/24/19 06:59 Assessment and Plan Plan: (1) Ventricular tachycardia Current Visit: Yes Status: Acute Code(s): I47.2 - VENTRICULAR TACHYCARDIA SNOMED Code(s): 70555141 Plan: Patient is admitted with symptomatic slow ventricular tachycardia. Waiting to be evaluated by Dr. Nickerson. 04/26/2019: Patient has remained chronically stable. Waiting to have stress test on Saturday Nurse practitioner note has been reviewed, I agree with the documented findings and plan of care. Patient was seen and examined.
[2019-04-27] MEDS: SODIUM CHLORIDE 0.9% 1,000 ML IV SCH (03:36)
--- NOTE | 2019-04-27 08:20 | P.PN ---
Progress Note - Text The patient is a 63-year-old gentleman who presented with palpitations was found to have a wide complex tachycardia of ventricular origin consistent with a slow ventricular tachycardia. He did not have any unusual chest pain or shortness of breath. Patient is an avid runner. Vital signs show a temperature 98.5 with a pulse of 53 and respirations 20. Blood pressure 127/66 and he is 97% saturated. Respirations are even and unlabored. No edema. No neurological changes. Cardiology workup is in progress. Please refer to cardiology notes at this time. Discussed with patient. Questions answered. Their recommendations to follow. Continue present medications.
[2019-04-27 08:51] VITALS: TEMP 98.2
[2019-04-27] MEDS: ASPIRIN 325 MG TAB PO SCH (11:25)
[2019-04-27] MEDS: HYOSCYAMINE SULFATE 0.375 MG TAB.ER.12H PO SCH (11:25)
--- NOTE | 2019-04-27 12:04 | ECHOS ---
STRESS ECHOCARDIOGRAM DATE OF SERVICE: 04/27/2019 INDICATIONS: Palpitations MEDICATIONS: BASELINE HEART RATE: 64 BASELINE BLOOD PRESSURE: 137/62 MAXIMUM HEART RATE: 160 MAXIMUM BLOOD PRESSURE: 203/109 85% MPHR: 133 100% MPHR: 157 METS: 12.1 MAXIMUM STAGE REACHED: IV TOTAL EXERCISE TIME: 12 minutes CLINICAL INFORMATION: Baseline rhythm is sinus mechanism, rate is 64, normal axis and intervals, normal electrocardiogram. Baseline blood pressure 137/62 mmHg. Patient exercised on Cam protocol for 12 minutes, reaching peak rate 160 beats per minute which is equal to 100% maximum predicted heart rate. Peak blood pressure 203/109 mmHg. Test was terminated secondary to fatigue. There is no chest pain. Electrocardiograph monitoring revealed a steep upsloping ST-segment depression of 5 mm at peak exercise that resolved in recovery. Baseline echocardiogram revealed normal wall thickening and motion at peak exercise. There was normal wall motion augmentation with no hypokinesis or dyskinesis. CONCLUSION: 1. Excellent exercise tolerance with normal electrocardiograph response to exercise. 2. Normal stress echocardiogram with no evidence of stress induced ischemia. MMODL / IJN: [id number] /
[2019-04-27 14:11] VITALS: BP 110/64; PULSE 63; RESP 16
--- NOTE | 2019-04-27 15:19 | P.PN ---
Subjective Progress Note Date: 04/27/19 This is a pleasant 63-year-old gentleman with no prior documented history of hypertension, no diabetes, no hyperlipidemia, he is a nonsmoker, rarely drinks alcohol, his sister had an ablation procedure done in the past, no family history of premature coronary artery disease, he is also a runner, he's been running for the past 40 years. Patient presented to the hospital yesterday with symptoms of palpitations, he denies any associated shortness of breath, no dizziness or lightheadedness, no chest discomfort. He states it felt like he had too much caffeine, he felt somewhat jittery. Because of these symptoms he came to the emergency room for further evaluation. His initial EKG showed a normal sinus rhythm with no acute changes. Subsequent EKG showed a wide complex rhythm suggesting a slow ventricular tachycardia. Patient did go back into normal sinus rhythm, he did have some occasional PVCs and couplets, earlier this morning he had a run of sustained slow ventricular tachycardia for over a minute. He did develop palpitations at this time. His blood pressure on arrival here 146/80 with a heart rate of 100, 96% on room air. Blood pressure this morning 146/76 with a heart rate in the 50s, 99% on 2 L of oxygen. The patient had been given 5 mg of IV Lopressor and started on a ski milligrams a beta vivienne twice a day. This was held this morning because of the heart rate in the 40s to 50s. CBC is normal, sodium 140, potassium 3.9, BUN 24 and creatinine 0.8, magnesium 2.0. Troponins are negative 2, TSH level 6.8, cholesterol 195, LDL 1:15, HDL 72, triglycerides 40. At the time of my examination this morning, the patient feels well, symptom-free. His is at bedside. 04/27/2019 Patient was seen in consultation by Dr. Nickerson on April 24, he did explain to t he patient, that he is having episodes of a wide complex rhythm, ventricular in origin, some manifesting an escape mechanism with proceeding sinus bradycardia. He was started on hyoscyamine 0.75 mg twice a day and his metoprolol was discontinued. Since the initiation of this stroke patient has had no further arrhythmias. He's been up ambulating in the hallway without any difficulty. He underwent a stress echocardiographic study today which was negative for any reversible ischemia. Hemodynamically he is stable. Objective - Vital Signs Vital signs: Vital Signs Temp 98.2 F 04/27/19 08:00 Pulse 63 04/27/19 12:00 Resp 16 04/27/19 12:00 BP 110/64 04/27/19 12:00 Pulse Ox 95 04/27/19 12:00 Intake & Output 04/26/19 04/27/19 04/27/19 18:59 06:59 18:59 Intake Total 960 530 240 Balance 960 530 240 Weight 81.4 kg Intake: IV 0 Sodium Chloride 0.9% 1, 0 000 ml @ 100 mls/hr IV . Q10H [facility] Rx#:[id number] Oral 960 530 240 Other: Voiding Method Toilet Toilet # Voids 1 - Exam PHYSICAL EXAMINATION: GENERAL: 63-year-old gentleman in no acute distress at the time of my examination HEENT: Head is atraumatic, normocephalic. Pupils equal, round. Sclera anicteric. Conjunctiva are clear. Mucous membranes of the mouth are moist. Neck is supple. There is no elevated jugular venous pressure. No carotid bruit is heard. HEART EXAMINATION: Heart S1, S2 normal. No murmur or gallop heard. CHEST EXAMINATION: Lungs are clear to auscultation and precussion. No chest wall tenderness is noted on palpation or with deep breathing. ABDOMEN: Soft, nontender. Bowel sounds are heard. No organomegaly noted. EXTREMITIES: 2+ peripheral pulses with no evidence of peripheral edema and no calf tenderness noted. NEUROLOGIC patient is awake, alert and oriented 3 - Labs CBC & Chem 7: 04/24/19 06:59 04/24/19 06:59 Assessment and Plan Plan: Assessment and plan #1 symptoms of palpitations, EKG suggestive of a wide complex tachycardia, possible slow ventricular tachycardia with a heart rate of 100. Patient is dukes ving intermittent runs of wide-complex tachycardia. #2 hypothyroidism, TSH 6.8 Plan Echo cardiac gram with Doppler study revealed a normal left ventricular systolic function and stress echocardiographic study was negative for any reversible ischemia. From cardiology's perspective, patient may be able to be discharged home, we will make him a follow-up appointment to see Dr. Oneill in the off ice in one week, Dr. Lockhart in 3-4 weeks. He will continue on the hyoscyamine 0.75 mg by mouth twice a day DNP note has been reviewed, I agree with a documented findings and plan of care. Patient was seen and examined.
--- NOTE | 2019-04-28 08:07 | DS ---
DISCHARGE SUMMARY Mr. Busch is a 63-year-old gentleman who presented to the emergency room with recurrent episodes of palpitations the day of admission. They were not associated with any chest pain or shortness of breath. He was found on monitoring in the emergency room and EKGs to have a wide-complex tachycardia, which was consistent with a slow ventricular tachycardia. The patient initially received beta blockers but later had an evaluation by Cardiology, who felt that the rhythm was more of an escape rhythm due to his bradycardia. The patient's initial labs revealed a white count of 8.8, hemoglobin 15.9 and a platelet count of 167. His INR was 0.9 with a PTT of 22.8. Electrolytes were normal with a sodium 140, potassium 3.9, BUN was 24 with creatinine 0.98, giving him a GFR of 83. His blood sugar was 97. Calcium was 9.7, phosphorus 3.4, magnesium 2.0. CK was slightly elevated with CK-MB of 3.2, but troponins x3 were normal. BNP was 90. Albumin 4.8. Cholesterol values revealed an LDL of 115 with HDL 72, total 195, and triglycerides were only 40. His TSH was slightly elevated 6.8. Chest x-ray did not show any acute processes. The patient did have an echocardiogram, which showed sinus rhythm, normal LV size with an ejection fraction of 55% to 60%. There was some mild concentric LV hypertrophy. LA was normal by volume. Atrial and ventricular septums were intact. Mild pulmonary hypertension. No pericardial effusion was noted. The patient was initially placed on a beta vivienne, but per Cardiology evaluation he was switched to hyoscyamine sulfate 0.75 mg twice a day. The patient seemed to have better control of the ventricular arrhythmia. He underwent echo stress testing, which did not show any evidence of ischemic changes. Plans are for him to continue on the hyoscyamine sulfate and follow up with myself and Cardiology over the next 3 to 7 days. FINAL DISCHARGE DIAGNOSES: 1. A slow ventricular tachycardia associated with sinus bradycardia and causing palpitations likely related to an underlying escape rhythm due to his bradycardia. 2. 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 The patient can continue with activities as tolerated as per Cardiology. DIET: Continue with low-cholesterol diet. Once again, call office if any concerns or problems. MMODL / IJN: [id number] /
== END 2019-04-27 16:18 | disposition home or self-care (01) | DRG 310 ==
LOC: EC 21:46 → 3SCARD 23:56
PROVIDERS: ADMIT Internal Medicine; ATTEND Internal Medicine
DX: I47.2 Ventricular tachycardia (principal); I49.3 Ventricular premature depolarization; M06.9 Rheumatoid arthritis, unspecified; M19.041 Primary osteoarthritis, right hand; M19.042 Primary osteoarthritis, left hand; Z80.3 Family history of malignant neoplasm of breast; Z82.3 Family history of stroke; Z82.49 Family history of ischemic heart disease and other diseases of the circulatory system; Z86.010 Personal history of colon polyps
CPT/HCPCS: 36415; 71046; 80048; 80053; 80061; 82550; 82553; 83605; 83735; 83880; 84100; 84439; 84443; 84481; 84484; 85025; 85610; 85730; 93005; 93306; 93351; 96361; 96374; 99285

== ENCOUNTER → 2019-05-22 | Outpatient (CLI) | payer OTHER ==
[2019-05-22 11:32] LABS: African American GFR (CKD) >90 (>60 ml/min/1.73 sqM); Anion Gap 5 mmol/L; Blood Urea Nitrogen 24 mg/dL (9-20); Carbon Dioxide 30 mmol/L (22-30); Chloride 103 mmol/L (98-107); Glucose 96 mg/dL (74-99); Potassium 4.7 mmol/L (3.5-5.1); Sodium 138 mmol/L (137-145)
[2019-05-22 11:39] LABS: HCT 44.4 % (39.0-53.0); HGB 14.6 gm/dL (13.0-17.5); MCH 31.8 pg (25.0-35.0); MCHC 32.8 g/dL (31.0-37.0); MCV 96.8 fL (80.0-100.0); Mean Platelet Volume 8.2; Platelet Count 177 k/uL (150-450); RBC 4.58 m/uL (4.30-5.90); WBC 5.2 k/uL (3.8-10.6)
== END | disposition home or self-care (01) ==
LOC: LABPAT 10:33
PROVIDERS: ATTEND Internal Medicine Clinical Cardiac Electrophysiology
DX: Z01.812 Encounter for preprocedural laboratory examination (principal); I47.2 Ventricular tachycardia
CPT/HCPCS: 80051; 82565; 82947; 84520; 85027

== ENCOUNTER → 2019-05-25 | Day surgery (SDC) | payer OTHER ==
[2019-05-22 09:49] VITALS: BMI 23.7
[~2019-05-25] MED LIST: LIDOCAINE 1% INJ 10MG/ML (20 ML MDV) ONE; LIDOCAINE 1% INJ 10MG/ML (20 ML MDV) SQ ONE; MIDAZOLAM 2 MG/2 ML VIAL ONE; PROPOFOL 10 MG/ML 20 ML VIAL IV ONE; SODIUM CHLORIDE 0.9% 1,000 ML IV ONE; SODIUM CHLORIDE 0.9% 1,000 ML IV SCH; ceFAZolin IN SWFI 2 GM/20 ML SYRINGE IVP STA; fentaNYL (PF) 50 MCG/ML 2 ML AMP ONE
[2019-05-25 13:10] VITALS: RESP 18; TEMP 99
--- NOTE | 2019-05-25 15:22 | P.PCN ---
Preoperative Diagnosis: Patient admitted for evaluation of nonsustained ventricular tachycardia, symptomatic as well as bradycardia. He was scheduled to undergo an EP study however because of technical issues with the fluoroscopic were point procedure had to be stopped. Catheters had not been placed at that time We proceed with implantation of a loop monitor
--- NOTE | 2019-05-25 15:26 | P.PCN ---
Preoperative Diagnosis: Loop monitor implant Primary physicians: Dr. To Reinforcement Maker: Dr. Brooks Indication: Nonsustained ventricular tachycardia at rest and sinus bradycardia Patient was brought to the EP lab in a fasting state. Written informed consent was obtained prior to the procedure. The left pectoral area was prepped and draped per protocol. Intravenous antibiotic was administered preoperatively. A subcutaneous Loop monitor was implanted successfully and the wound was closed per protocol. The device was programmed to detect significant rayray- arrhythmic and tachy-arrhythmic events, per protocol. Device and programming details: Sinus bradycardia protocol, tachycardia detection beats reprogrammed to 12, bradycardia less than 40 beats a minute
--- NOTE | 2019-05-25 15:28 | P.PCN ---
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 He has tendency for sinus bradycardia as well as slow nonsustained ventricular tachycardia which is symptomatic and usually at rest. I had treated him with hyoscyamine since I thought that he was actually having AIVR This resulted in suppression of aVR and therefore I feel this is an expression of Sick Sinus Syndrome sinus bradycardia I will send you a follow-up note if I see any significant bradycardia that merits permanent pacing or an EP study and ablation for ventricular tachycardia
[2019-05-25 17:17] VITALS: BP 143/78; PULSE 56
== END ==
LOC: CATHEP 11:53
PROVIDERS: ATTEND Internal Medicine Clinical Cardiac Electrophysiology
DX: I47.1 Supraventricular tachycardia (principal); I49.5 Sick sinus syndrome
CPT/HCPCS: 33285; C1894; C1769 ×2; C1764; J2250; J2001; J3010; J2704; J0690

== ENCOUNTER 2020-03-05 10:49 | Observation (INO) | payer OTHER ==
[2020-03-05] MEDS ORDERED: ASPIRIN 81 MG PO STA (11:04)
[2020-03-05] MEDS ORDERED: NITROGLYCERIN SL TABS 0.4 MG TAB SUBLINGUAL STA ×3 (11:04)
--- NOTE | 2020-03-05 11:06 | ED ---
General Adult HPI - General Chief complaint: Chest Pain Stated complaint: chest pain Time Seen by Provider: 03/05/20 11:00 Source: patient, RN notes reviewed Mode of arrival: ambulatory Limitations: no limitations - History of Present Illness Initial comments: Patient is a pleasant 64-year-old male presenting to the emergency Department with complaints of chest discomfort. Onset of symptoms was while helping his in the kitchen around an hour ago. Discomfort is moderate rated 45/10. Discomfort feels like pressure in the mid chest without radiation. Patient has mild associated dyspnea and very mild nausea. No diaphoresis. No history of si milar symptoms previously. No leg pain or leg swelling. - Related Data Allergies Allergy/AdvReac Type Severity Reaction Status Date / Time No Known Allergies Allergy Verified 03/05/20 10:58 Review of Systems ROS Statement: Those systems with pertinent positive or pertinent negative responses have been documented in the HPI. ROS Other: All systems not noted in ROS Statement are negative. Constitutional: Denies: fever Eyes: Denies: eye pain ENT: Denies: ear pain Respiratory: Reports: as per HPI. Denies: cough Cardiovascular: Reports: as per HPI, chest pain Endocrine: Denies: fatigue Gastrointestinal: Denies: abdominal pain Genitourinary: Denies: dysuria Musculoskeletal: Denies: back pain Skin: Denies: rash Neurological: Denies: weakness Past Medical History Past Medical History: Rheumatoid Arthritis (RA) Additional Past Medical History / Comment(s): hypoglycemia, hx. colon polyps, loop recorder placed after episode of v-tach History of Any Multi-Drug Resistant Organisms: None Reported Past Surgical History: Orthopedic Surgery Additional Past Surgical History / Comment(s): arthroscopies both knees, loop recorder Past Anesthesia/Blood Transfusion Reactions: No Reported Reaction Past Psychological History: No Psychological Hx Reported Smoking Status: Never smoker Past Alcohol Use History: None Reported Past Drug Use History: None Reported - Past Family History Mother Family Medical History: Cancer Additional Family Medical History / Comment(s): breast Father Additional Family Medical History / Comment(s): brain tumor General Exam Limitations: no limitations General appearance: alert, in no apparent distress Head exam: Present: normocephalic Eye exam: Present: normal appearance, PERRL ENT exam: Present: normal oropharynx Neck exam: Present: normal inspection Respiratory exam: Present: normal lung sounds bilaterally. Absent: chest wall tenderness Cardiovascular Exam: Present: regular rate, normal rhythm Expanded Peripheral pulses: 2+: Radial (R), Radial (L), Posterior Tibialis (R), Posterior Tibialis (L) GI/Abdominal exam: Present: soft. Absent: distended, tenderness Extremities exam: Present: normal inspection. Absent: pedal edema, calf tenderness Neurological exam: Present: alert Psychiatric exam: Present: normal affect, normal mood Skin exam: Present: normal color Course Vital Signs 03/05/20 03/05/20 03/05/20 10:52 11:11 11:22 Temperature 97.9 F Pulse Rate 59 L 62 61 Respiratory 18 20 18 Rate Blood Pressure 154/87 144/85 113/73 O2 Sat by Pulse 98 97 97 Oximetry 03/05/20 11:47 Temperature Pulse Rate 56 L Respiratory 18 Rate Blood Pressure 142/86 O2 Sat by Pulse 98 Oximetry EKG Findings - EKG Comments: EKG Findings:: Normal sinus rhythm 66. OR 164. QRS 76. QT 412. QTC 431. Left axis. Borderline Q waves V1 and V2. No acute ST change. Medical Decision Making - Medical Decision Making Patient reevaluated and significantly improved following nitroglycerin. Discomfort is less than 1/10. Patient updated on results and plan. Case discussed in detail with Dr. Conroy, covering for Dr. Bearden, who will admit. D- dimer is somewhat elevated and computed tomography scan of the chest will be ordered. Dr. Corbin is aware of this. - Lab Data Result diagrams: 03/05/20 11:10 03/05/20 11:10 Lab Results 03/05/20 03/05/20 03/05/20 Range/Units 11:10 11:10 11:10 WBC 4.4 (3.8-10.6) k/uL RBC 4.65 (4.30-5.90) m/uL Hgb 14.7 (13.0-17.5) gm/dL Hct 45.7 (39.0-53.0) % MCV 98.3 (80.0-100.0) fL MCH 31.6 (25.0-35.0) pg MCHC 32.1 (31.0-37.0) g/dL RDW 12.3 (11.5-15.5) % Plt Count 177 (150-450) k/uL Neutrophils % 55 % Lymphocytes % 27 % Monocytes % 10 % Eosinophils % 3 % Basophils % 1 % Neutrophils # 2.4 (1.3-7.7) k/uL Lymphocytes # 1.2 (1.0-4.8) k/uL Monocytes # 0.5 (0-1.0) k/uL Eosinophils # 0.2 (0-0.7) k/uL Basophils # 0.0 (0-0.2) k/uL PT 10.5 (9.0-12.0) sec INR 1.0 (<1.2) APTT 23.7 (22.0-30.0) sec D-Dimer 0.84 H (<0.60) mg/L FEU Sodium 135 L (137-145) mmol/L Potassium 4.1 (3.5-5.1) mmol/L Chloride 102 (98-107) mmol/L Carbon Dioxide 27 (22-30) mmol/L Anion Gap 6 mmol/L BUN 22 H (9-20) mg/dL Creatinine 0.81 (0.66-1.25) mg/dL Est GFR (CKD-EPI)AfAm >90 (>60 ml/min/1.73 sqM) Est GFR (CKD-EPI)NonAf >90 (>60 ml/min/1.73 sqM) Glucose 109 H (74-99) mg/dL Calcium 9.3 (8.4-10.2) mg/dL Magnesium 2.0 (1.6-2.3) mg/dL Total Bilirubin 0.6 (0.2-1.3) mg/dL AST 24 (17-59) U/L ALT 18 (4-49) U/L Alkaline Phosphatase 64 (38-126) U/L Troponin I (0.000-0.034) ng/mL NT-Pro-B Natriuret Pep pg/mL Total Protein 6.9 (6.3-8.2) g/dL Albumin 4.4 (3.5-5.0) g/dL 03/05/20 03/05/20 Range/Units 11:10 11:10 WBC (3.8-10.6) k/uL RBC (4.30-5.90) m/uL Hgb (13.0-17.5) gm/dL Hct (39.0-53.0) % MCV (80.0-100.0) fL MCH (25.0-35.0) pg MCHC (31.0-37.0) g/dL RDW (11.5-15.5) % Plt Count (150-450) k/uL Neutrophils % % Lymphocytes % % Monocytes % % Eosinophils % % Basophils % % Neutrophils # (1.3-7.7) k/uL Lymphocytes # (1.0-4.8) k/uL Monocytes # (0-1.0) k/uL Eosinophils # (0-0.7) k/uL Basophils # (0-0.2) k/uL PT (9.0-12.0) sec INR (<1.2) APTT (22.0-30.0) sec D-Dimer (<0.60) mg/L FEU Sodium (137-145) mmol/L Potassium (3.5-5.1) mmol/L Chloride (98-107) mmol/L Carbon Dioxide (22-30) mmol/L Anion Gap mmol/L BUN (9-20) mg/dL Creatinine (0.66-1.25) mg/dL Est GFR (CKD-EPI)AfAm (>60 ml/min/1.73 sqM) Est GFR (CKD-EPI)NonAf (>60 ml/min/1.73 sqM) Glucose (74-99) mg/dL Calcium (8.4-10.2) mg/dL Magnesium (1.6-2.3) mg/dL Total Bilirubin (0.2-1.3) mg/dL AST (17-59) U/L ALT (4-49) U/L Alkaline Phosphatase (38-126) U/L Troponin I <0.012 (0.000-0.034) ng/mL NT-Pro-B Natriuret Pep 61 pg/mL Total Protein (6.3-8.2) g/dL Albumin (3.5-5.0) g/dL - Radiology Data Radiology results: image reviewed (COPD changes) Disposition Clinical Impression: Chest pain Disposition: ADMITTED IP TO THIS HOSP Is patient prescribed a controlled substance at d/c from ED?: No Referrals: Melody Garcia MD [Primary Care Provider] - 1-2 days Decision Time: 12:36
[2020-03-05 11:22] LABS: Basophils % (A) 1 %; Eosinophils # (A) 0.2 k/uL (0-0.7); Eosinophils % (A) 3 %; HCT 45.7 % (39.0-53.0); HGB 14.7 gm/dL (13.0-17.5); Lymphocytes # (A) 1.2 k/uL (1.0-4.8); Lymphocytes % (A) 27 %; MCH 31.6 pg (25.0-35.0); MCHC 32.1 g/dL (31.0-37.0); MCV 98.3 fL (80.0-100.0); Mean Platelet Volume 8.2; Monocytes # (A) 0.5 k/uL (0-1.0); Monocytes % (A) 10 %; Neutrophils # (A) 2.4 k/uL (1.3-7.7); Neutrophils % (A) 55 %; Platelet Count 177 k/uL (150-450); RBC 4.65 m/uL (4.30-5.90); RDW 12.3 % (11.5-15.5); WBC 4.4 k/uL (3.8-10.6)
[2020-03-05 11:30] LABS: ALT 18 U/L (4-49); AST 24 U/L (17-59); African American GFR (CKD) >90 (>60 ml/min/1.73 sqM); Albumin 4.4 g/dL (3.5-5.0); Alkaline Phosphatase 64 U/L (38-126); Anion Gap 6 mmol/L; Blood Urea Nitrogen 22 mg/dL (9-20); Calcium 9.3 mg/dL (8.4-10.2); Carbon Dioxide 27 mmol/L (22-30); Chloride 102 mmol/L (98-107); Glucose 109 mg/dL (74-99); Non-African American GFR(CKD) >90 (>60 ml/min/1.73 sqM); Potassium 4.1 mmol/L (3.5-5.1); Sodium 135 mmol/L (137-145); Total Bilirubin 0.6 mg/dL (0.2-1.3); Total Protein 6.9 g/dL (6.3-8.2)
[2020-03-05 11:36] LABS: Partial Thromboplastin Time 23.7 sec (22.0-30.0); Prothrombin Time 10.5 sec (9.0-12.0)
[2020-03-05 11:56] LABS: D-Dimer 0.84 mg/L FEU (<0.60)
--- NOTE | 2020-03-05 12:10 | XR ---
EXAMINATION TYPE: XR chest 2V DATE OF EXAM: 03/05/2020 HISTORY: Chest Pain. REFERENCE: Previous study dated 04/23/2019. FINDINGS: Lung volumes are prominent. The lungs are clear. Pleural spaces are clear. The heart is not enlarged. IMPRESSION: COPD.
[2020-03-05] MEDS ORDERED: NITROGLYCERIN SL TABS 0.4 MG TAB SUBLINGUAL PRN (12:36)
[2020-03-05] MEDS: NITROGLYCERIN OINT 1 INCH/GM PACKET TOPICAL SCH ×2 (12:54→17:50)
--- NOTE | 2020-03-05 13:59 | CT ---
EXAMINATION TYPE: CT angio chest DATE OF EXAM: 03/05/2020 12:43 PM COMPARISON: None. HISTORY: Dyspnea CT DLP: 419.2 mGycm Automated exposure control for dose reduction was used. CONTRAST: CTA scan of the thorax is performed with IV Contrast, patient injected with 100 mL of Isovue 370, pul monary embolism protocol. . FINDINGS: There is minimal dependent atelectasis at the lung bases. There is no significant axillary, mediastinal or hilar adenopathy. There is no evidence of pulmonary embolus. The aorta is normal in caliber without evidence of dissection. There is no pleural or pericardial fluid. The heart is not enlarged. Visualized portions of the upper abdomen are unremarkable. There is minimal hypertrophic spondylosis within the spine. IMPRESSION: THIS EXAMINATION IS NEGATIVE FOR PULMONARY EMBOLUS.
[2020-03-05 14:50] VITALS: RESP 16
[2020-03-05] MEDS ORDERED: NALOXONE 0.4 MG/ML 1 ML VIAL IV PRN (17:27)
[2020-03-05] MEDS ORDERED: HYDROcodone/APAP 5-325MG 1 EACH TAB PO PRN (17:27)
[2020-03-05] MEDS ORDERED: ACETAMINOPHEN TAB 325 MG TAB PO PRN (17:27)
--- NOTE | 2020-03-05 17:28 | P.HPIM ---
History of Present Illness H&P Date: 03/05/20 Chief Complaint: Chest pain 64-year-old male with no past medical history presents the ED for chest pain. Patient states this morning he was cooking with his when he experienced the sudden onset of chest pain. Chest pain was substernal and 4 out of 10 in severity. He described it as heaviness sensation. Pain was nonradiating. He has never experienced this pain before. Pain was associated with shortness of breath. When this pain persisted this prompted the patient to come to the ED. He denies any headache, lower extremity edema, nausea or vomiting, fever or chills, cough, palpitations, changes in urination or bowel habits. No changes in appetite or weight. He denies any dizziness, numbness/weakness/tingling of the extremities. In the ED, his vital signs are stable except for heart rate of 56. CBC was unremarkable. INR was negative. D-dimer was slightly elevated at 0.84. CMP showed sodium of 135, BUN 22, glucose 109. Troponin was less than 0. 012, EKG showing normal sinus rhythm. BNP was 61, chest x-ray showing COPD. Coronavirus testing was negative. CTA chest was negative for PE. Patient is admitted for chest pain, rule out acute coronary syndrome with cardiology consulted. Review of Systems Pertinent positives and negatives as discussed in HPI, a complete review of systems was performed and all other systems are negative. Past Medical History Past Medical History: Rheumatoid Arthritis (RA) Additional Past Medical History / Comment(s): hypoglycemia, hx. colon polyps, loop recorder placed after episode of v-tach 05/2019 History of Any Multi-Drug Resistant Organisms: None Reported Past Surgical History: Orthopedic Surgery Additional Past Surgical History / Comment(s): arthroscopies both knees, loop recorder Past Anesthesia/Blood Transfusion Reactions: No Reported Reaction Smoking Status: Never smoker - Past Family History Mother Family Medical History: Cancer Additional Family Medical History / Comment(s): breast Father Additional Family Medical History / Comment(s): brain tumor Medications and Allergies Home Medications Medication Instructions Recorded Confirmed Type No Known Home Medications 03/05/20 03/05/20 History Allergies Allergy/AdvReac Type Severity Reaction Status Date / Time No Known Allergies Allergy Verified 03/05/20 12:47 Physical Exam Vitals: Vital Signs Temp Pulse Pulse Resp BP BP Pulse Ox 03/05/20 15:00 16 04/25/20 14:48 97.7 F 60 16 129/98 97 03/05/20 14:16 59 L 18 113/68 98 03/05/20 13:03 56 L 18 121/69 98 03/05/20 11:47 56 L 18 142/86 98 03/05/20 11:22 61 18 113/73 97 03/05/20 11:11 62 20 144/85 97 03/05/20 10:52 97.9 F 59 L 18 154/87 98 Intake and Output 03/05/20 03/05/20 03/05/20 06:59 14:59 22:59 Other: Weight 82.554 kg General: [non toxic], [no distress], [appears at stated age] Derm: [warm], [dry] Head: [atraumatic], [normocephalic], [symmetric] Eyes: [EOMI], [no lid lag], [anicteric sclera] Mouth: [no lip lesion], [mucus membranes moist] Cardiovascular: [S1S2 reg], [no murmur], [positive posterior tibial pulse bilateral], Lungs: [CTA bilateral], [no rhonchi, no rales] , [no accessory muscle use] Abdominal: [soft], [ nontender to palpation], [no guarding], [no appreciable organomegaly] Ext: [no gross muscle atrophy], [no edema], [no contractures] Neuro: [ CN II-XI grossly intact], [no focal neuro deficits] Psych: [Alert], [oriented], [appropriate affect] Results CBC & Chem 7: 03/05/20 11:10 03/05/20 11:10 Labs: Abnormal Lab Results - Last 24 Hours (Table) 03/05/20 03/05/20 Range/Units 11:10 11:10 D-Dimer 0.84 H (<0.60) mg/L FEU Sodium 135 L (137-145) mmol/L BUN 22 H (9-20) mg/dL Glucose 109 H (74-99) mg/dL Thrombosis Risk Factor Assmnt - Choose All That Apply Each Risk Factor Represents 2 Points: Age 61-74 years Thrombosis Risk Factor Assessment Total Risk Factor Score: 2 Thrombosis Risk Factor Assessment Level: Low Risk Assessment and Plan Assessment: Chest pain, rule out acute coronary syndrome Elevated d-dimer Elevated BUN Troponin was less than 0.0121 with EKG showing normal sinus rhythm. Chest x- ray is negative. Plans: Trend troponin/EKG to rule out ACS. Start aspirin. Telemetry monitoring. Heart healthy diet. Follow lipid panel. Follow-up cardiology consultation. CTA chest rules out PE. Plans: Nothing further to do. BUN 22. Likely related to dehydration. Plans: Encourage hydration by mouth. DVT prophylaxis: [Heparin subcutaneously] Discussed with: [Patient] Anticipated discharge: [1-2 days] Anticipated discharge place: [Home] A total of [35] minutes was spent on the care of this complex patient more than 50% of the time was spent in counseling and care coordination. Patient names his decision-maker if he can't make decisions for himself. Patient would like to be full code.
[2020-03-05] MEDS: HEPARIN SODIUM,PORCINE 5,000 UNIT/ML 1 ML VIAL SQ SCH (20:27)
[2020-03-06] MEDS ORDERED: CALCIUM CARBONATE 500 MG CHEWABLE PO PRN (04:56)
[2020-03-06] MEDS: NITROGLYCERIN OINT 1 INCH/GM PACKET TOPICAL SCH ×2 (06:00)
[2020-03-06 07:16] LABS: Cholesterol 206 mg/dL (<200); HDL Cholesterol 72 mg/dL (40-60); LDL Cholesterol,Calculated 120 mg/dL (0-99); Triglycerides 68 mg/dL (<150)
[2020-03-06] MEDS ORDERED: NITROGLYCERIN SL TABS 0.4 MG TAB SUBLINGUAL PRN (08:29)
[2020-03-06] MEDS ORDERED: ASPIRIN 325 MG TAB PO STA (08:29)
[2020-03-06] MEDS ORDERED: ALPRAZolam 0.5 MG TAB PO PRN (08:29)
[2020-03-06] MEDS ORDERED: ALPRAZolam 0.25 MG TAB PO PRN (08:29)
[2020-03-06] MEDS ORDERED: ATORVASTATIN 80 MG TAB PO STA (08:29)
[2020-03-06] MEDS ORDERED: SODIUM CHLORIDE 0.9% 1,000 ML in EMPTY BAG 1 BAG IV ONE (08:29)
[2020-03-06] MEDS ORDERED: ASPIRIN 325 MG TAB PO SCH (09:00)
[2020-03-06] MEDS: HEPARIN SODIUM,PORCINE 5,000 UNIT/ML 1 ML VIAL SQ SCH (09:14)
[2020-03-06] MEDS ORDERED: IV FLUID CONTINUATION 1,000 ML IV ONE (10:07)
[2020-03-06] MEDS ORDERED: VERAPAMIL 2.5 MG/ML 2 ML AMP ONE (10:15)
[2020-03-06] MEDS ORDERED: HEPARIN SODIUM 1,000 UN/ML (10ML VL) ONE (10:15)
[2020-03-06] MEDS ORDERED: fentaNYL (PF) 50 MCG/ML 2 ML AMP ONE (10:15)
[2020-03-06] MEDS ORDERED: LIDOCAINE 1% INJ 10MG/ML (20 ML MDV) ONE (10:15)
[2020-03-06] MEDS ORDERED: MIDAZOLAM 2 MG/2 ML VIAL IV ONE (10:26)
[2020-03-06] MEDS ORDERED: LIDOCAINE 1% INJ 10MG/ML (20 ML MDV) SQ ONE (10:26)
[2020-03-06] MEDS ORDERED: fentaNYL (PF) 50 MCG/ML 2 ML AMP IV ONE ×2 (10:27)
[2020-03-06] MEDS ORDERED: VERAPAMIL SYRINGE (5 MG/10 ML) INTRAARTER ONE (10:30)
[2020-03-06] MEDS ORDERED: IOPAMIDOL-370 125ML BTL INJ ONE (10:42)
[2020-03-06] MEDS ORDERED: RX INFO: IV CONTRAST WAS GIVEN 1 EACH MISC MISCELLANE PRN (10:52)
[2020-03-06] MEDS ORDERED: SODIUM CHLORIDE 0.9% 1,000 ML IV SCH (11:00)
--- NOTE | 2020-03-06 11:04 | CC ---
CARDIAC CATHETERIZATION REPORT Mr. Busch is a 64-year-old male with a history of nonsustained ventricular tachycardia, who presented with symptoms of chest discomfort without any EKG or enzymatic changes. He was evaluated by Dr. Nickerson because of his history and presentation, recommendation were made regarding cardiac catheterization. The procedures, risks, and complications were discussed with the patient who is in full understanding and agreement. DESCRIPTION OF PROCEDURE: Patient was brought to the labor delivery rn in a fasting semisedated state. After receiving fentanyl and Benadryl and achieving moderate conscious sedated state. Using Xylocaine anesthesia and Seldinger technique, a 6-Macedonian sheath was introduced in the right radial artery. Selective right and left coronary angiography performed using 5-Macedonian 3.5 bend right and left Wilfrido catheter. Multiple views of the coronary arteries including hemiaxial views obtained. Following that 5-Macedonian tight pigtail catheter was introduced in the left ventricle and pressures were calculated. Following that, catheter and sheath were removed. Hemostasis was obtained with deployment of a TR band. There was no immediate complication. Patient was returned to his room in stable condition. FINDINGS: LEFT MAIN: This is a short size vessel bifurcating into left circumflex, left anterior descending artery, left main coronary artery has no evidence of high-grade stenosis. LEFT ANTERIOR DESCENDING ARTERY: This is a large-sized vessel reaching toward the apex with a wraparound apex segment giving rise to a large diagonal branch. The left anterior descending artery as well as branches have no evidence of obstructive coronary artery disease. LEFT CIRCUMFLEX: This is a large nondominant vessel giving rise to a large obtuse marginal branch. The left circumflex as well as branches have no evidence of obstructive coronary artery disease. RIGHT CORONARY ARTERY: This is a large dominant vessel, bifurcating distally into PDA and posterolateral segment and branches. The right coronary artery as well as branches have no evidence of obstructive coronary disease. LEFT VENTRICULOGRAM: Left ventriculogram was not performed. HEMODYNAMICS: There was no gradient across the aortic valve. The left ventricle end-diastolic pressure was 8 to 10 mmHg. CONCLUSION: 1. Normal coronary arteries. 2. Normal left ventricular end-diastolic pressure. RECOMMENDATIONS: In view of finding anatomy, I recommend continued medical therapy with aggressive coronary risk modifications that have been initiated. Those findings and recommendations were discussed with the patient and he is full understanding and agreement. Duration of procedure: 20 minutes. MMODL / IJN: [id number] /
--- NOTE | 2020-03-06 11:10 | LTR ---
DATE OF SERVICE: 03/06/[address] Garcia: I had the pleasure of performing cardiac catheterization on Mr. Busch at [facility] on March 06 and a full copy of procedure note will be forwarded to you. In brief, he was found to have no evidence of obstructive coronary artery disease with a normal left ventricular end-diastolic pressure. Based on those findings, I have recommended continued medical therapy with aggressive coronary risk modifications that have been initiated. Thank you again for allowing me to participate in his care. Please feel free to call for any questions. Sincerely yours, PABLO / KARLIN: [id number] /
[2020-03-06 11:24] VITALS: TEMP 97.5
--- NOTE | 2020-03-06 13:58 | P.CRDCN ---
History of Present Illness Consult date: 03/06/20 History of present illness: This is Dr. IFTZGERALD dictating a consult note on this patient Impression: Chest discomfort Midsternal while working in the ki, severe and relieved with sublinn in the emergenc No associated symptoms History of ventricular tachycardia Update: Patient underwent coronary angiography Normal coronary arteries Normal LVEDP Plan:Proceed with coronary angiography History of present illness: Patient presented to the emergency room with chest discomfort. He was going with his and he experienced sudden onset of chest discomfort which is substernal He described it as a heavy sensation Denied any other symptoms such as nausea He is a loop monitor implanted disease a tendency for sinus bradycardia. He has AIVR, as an expression of sinus bradycardia Review of systems No fever chills or rigors No cough phlegm or expectoration No nausea vomiting or diarrhea No hematuria dysuria No muscular skeletal complaints No neurologic complaints No skin lesions On examination Vitals Normal heart rates normal blood pressure Breath sounds are clear no rhonchi or crackles Normal S1 normal S2 Abdomen soft Extremities warm Review of data Sodium 135 potassium 4.1 BUN 22 creatinine 0.81 Troponin normal Coronavirus nondetectable White count normal hemoglobin 14.7 No medications Patient has a loop monitor implanted Twelve-lead ECG shows sinus rhythm normal ST segments Q waves in V2 No evidence of pulmonary embolism Past Medical History Past Medical History: Rheumatoid Arthritis (RA) Additional Past Medical History / Comment(s): hypoglycemia, hx. colon polyps, loop recorder placed after episode of v-tach 05/2019 History of Any Multi-Drug Resistant Organisms: None Reported Past Surgical History: Orthopedic Surgery Additional Past Surgical History / Comment(s): arthroscopies both knees, loop recorder Past Anesthesia/Blood Transfusion Reactions: No Reported Reaction Smoking Status: Never smoker - Past Family History Mother Family Medical History: Cancer Additional Family Medical History / Comment(s): breast Father Additional Family Medical History / Comment(s): brain tumor Medications and Allergies Home Medications Medication Instructions Recorded Confirmed Type No Known Home Medications 03/05/20 03/05/20 History Allergies Allergy/AdvReac Type Severity Reaction Status Date / Time No Known Allergies Allergy Verified 03/05/20 12:47 Physical Exam Vitals: Vital Signs Temp Pulse Pulse Resp BP BP Pulse Ox 03/05/20 15:00 16 03/05/20 14:48 97.7 F 60 16 129/98 97 03/05/20 14:16 59 L 18 113/68 98 03/05/20 13:03 56 L 18 121/69 98 03/05/20 11:47 56 L 18 142/86 98 03/05/20 11:22 61 18 113/73 97 03/05/20 11:11 62 20 144/85 97 03/05/20 10:52 97.9 F 59 L 18 154/87 98 Intake and Output 03/05/20 03/05/20 03/05/20 06:59 14:59 22:59 Intake Total 120 Balance 120 Intake: Oral 120 Other: Weight 82.554 kg Results 03/05/20 11:10 03/05/20 11:10 Cardiac Enzymes 03/05/20 03/05/20 03/05/20 Range/Units 11:10 11:10 17:31 AST 24 (17-59) U/L Troponin I <0.012 <0.012 (0.000-0.034) ng/mL Coagulation 03/05/20 Range/Units 11:10 PT 10.5 (9.0-12.0) sec APTT 23.7 (22.0-30.0) sec CBC 03/05/20 Range/Units 11:10 WBC 4.4 (3.8-10.6) k/uL RBC 4.65 (4.30-5.90) m/uL Hgb 14.7 (13.0-17.5) gm/dL Hct 45.7 (39.0-53.0) % Plt Count 177 (150-450) k/uL Comprehensive Metabolic Panel 03/05/20 Range/Units 11:10 Sodium 135 L (137-145) mmol/L Potassium 4.1 (3.5-5.1) mmol/L Chloride 102 (98-107) mmol/L Carbon Dioxide 27 (22-30) mmol/L BUN 22 H (9-20) mg/dL Creatinine 0.81 (0.66-1.25) mg/dL Glucose 109 H (74-99) mg/dL Calcium 9.3 (8.4-10.2) mg/dL AST 24 (17-59) U/L ALT 18 (4-49) U/L Alkaline Phosphatase 64 (38-126) U/L Total Protein 6.9 (6.3-8.2) g/dL Albumin 4.4 (3.5-5.0) g/dL Current Medications Generic Name Dose Route Start Last Admin Trade Name Freq PRN Reason Stop Dose Admin Acetaminophen 650 mg 03/05/20 17:27 Tylenol Tab PO Q6HR PRN Mild Pain or Fever > 100.5 Hydrocodone Bitart/Acetaminophen 1 each 03/05/20 17:27 Encinal 5-325 PO Q4HR PRN Moderate Pain Aspirin 325 mg 03/06/20 09:00 Aspirin PO DAILY SHEYLA Heparin Sodium (Porcine) 5,000 unit 03/05/20 21:00 Heparin SQ Q12HR SHEYLA Naloxone HCl 0.2 mg 03/05/20 17:27 Narcan IV Q2M PRN Opioid Reversal Nitroglycerin 0.4 mg 03/05/20 12:36 Nitrostat SUBLINGUAL Q5M PRN Chest Pain Nitroglycerin 1 inch 03/05/20 12:45 03/05/20 17:50 Nitro-Bid Oint TOPICAL 1 inch Q6HR SHEYLA Administration Sodium Chloride 10 ml 03/05/20 21:00 Saline Flush IV BID SHEYLA Intake and Output 03/05/20 03/05/20 03/05/20 06:59 14:59 22:59 Intake Total 120 Balance 120 Intake: Oral 120 Other: Weight 82.554 kg Patient Weight 03/06/20 06:59 Weight 82.554 kg 03/05/20 11:10 03/05/20 11:10
[2020-03-06 14:50] VITALS: BP 101/64; PULSE 53
--- NOTE | 2020-03-06 16:27 | P.DS ---
Providers Date of admission: 03/05/20 12:36 Expected date of discharge: 03/06/20 Attending physician: Hakan Beltran MD Consults: 03/05/20 12:36 Consult Physician Urgent Consulting Provider: Demetrius Nickerson Consult Reason/Comments: cp Do you want consulting provider notified?: Yes Primary care physician: [facility] Course: 64-year-old male with no past medical history presents the ED for chest pain. Patient states this morning he was cooking with his when he experienced the sudden onset of chest pain. Chest pain was substernal and 4 out of 10 in sever ity. He described it as heaviness sensation. Pain was nonradiating. He has never experienced this pain before. Pain was associated with shortness of breath. When this pain persisted this prompted the patient to come to the ED. He denies any headache, lower extremity edema, nausea or vomiting, fever or chills, cough, palpitations, changes in urination or bowel habits. No changes in appetite or weight. He denies any dizziness, numbness/weakness/tingling of the extremities. In the ED, his vital signs are stable except for heart rate of 56. CBC was unremarkable. INR was negative. D-dimer was slightly elevated at 0.84. CMP showed sodium of 135, BUN 22, glucose 109. Troponin was less than 0.012, EKG showing normal sinus rhythm. BNP was 61, chest x-ray showing COPD. Coronavirus testing was negative. CTA chest was negative for PE. Patient is admitted for chest pain, rule out acute coronary syndrome with cardiology consulted. Troponin was less than 0.0123 with EKG showing normal sinus rhythm. Cardiac cath was performed which was negative. Patient was cleared for discharge from cardiology perspective. Patient was seen and examined. He denies any chest pain, shortness breath or palpitations. No nausea or vomiting. No fever or chills. General: [non toxic], [no distress], [appears at stated age] Derm: [warm], [dry] Head: [atraumatic], [normocephalic], [symmetric] Eyes: [EOMI], [no lid lag], [anicteric sclera] Mouth: [no lip lesion], [mucus membranes moist] Cardiovascular: [S1S2 reg], [no murmur], [positive posterior tibial pulse bilateral], Lungs: [CTA bilateral], [no rhonchi, no rales] , [no accessory muscle use] Abdominal: [soft], [ nontender to palpation], [no guarding], [no appreciable organomegaly] Ext: [no gross muscle atrophy], [no edema], [no contractures] Neuro: [no focal neuro deficits] Psych: [Alert], [oriented], [appropriate affect] Chest pain, rule out acute coronary syndrome Elevated d-dimer Elevated BUN ACS ruled out. Likely GI etiology. Plans for DC today. Follow-up with PCP within 3 days of discharge. Pertinent Studies: Chest x-ray, chest CTA, cardiac catheterization Patient Condition at Discharge: Stable Plan - Discharge Summary New Discharge Prescriptions: No Action No Known Home Medications Discharge Medication List No Known Home Medications 03/05/20 [History] Follow up Appointment(s)/Referral(s): Demetrius Nickerson MD [STAFF PHYSICIAN] - 1 Week Melody Garcia MD [Primary Care Provider] - 1-2 days (Please call primary care provider on Saturday to schedule hospital follow up appointment. ) Patient Instructions/Handouts: After Radial Heart Catheterization (GEN) Activity/Diet/Wound Care/Special Instructions: Diet: Regular FU PCP within 3 days of DC. Come back to the ED or call 911 for worsening chest pain, SOB, palpitations, dizziness. No home medications Patient may go home if the circulation in his hand is within normal limits and he has no severe pain in the wrist Follow-up Dr. Oneill next week No new medications at this time Discharge Disposition: HOME SELF-CARE
[2020-03-07] MEDS ORDERED: ASPIRIN 325 MG TAB PO SCH (09:00)
[2020-03-07] MEDS ORDERED: ASPIRIN 81 MG PO SCH (09:00)
== END 2020-03-06 16:11 | disposition home or self-care (01) ==
LOC: EC 10:49 → 3SCARD 12:36
PROVIDERS: ADMIT Family Medicine; ATTEND Family Medicine
DX: R07.89 Other chest pain (principal); R79.89 Other specified abnormal findings of blood chemistry; R94.4 Abnormal results of kidney function studies; J44.9 Chronic obstructive pulmonary disease, unspecified; M06.9 Rheumatoid arthritis, unspecified; Z03.818 Encounter for observation for suspected exposure to other biological agents ruled out; Z86.010 Personal history of colon polyps; Z95.818 Presence of other cardiac implants and grafts; Z86.79 Personal history of other diseases of the circulatory system; Z86.39 Personal history of other endocrine, nutritional and metabolic disease; Z80.3 Family history of malignant neoplasm of breast; Z80.8 Family history of malignant neoplasm of other organs or systems
CPT/HCPCS: 93005 ×2; 99285; 36415; 93458; 85379; 83880; 80061; 80053; 83735; 84484; 85025; 85610; 85730; 87635; 71046; 71275; 99152; G0378 ×2; C1769 ×2; C1894; J2250; J2001; J3010; J1644; Q9967 ×2

== ENCOUNTER → 2020-03-28 | Outpatient (CLI) | payer OTHER | END | disposition home or self-care (01) | LOC: RADXRMAIN 14:13 | PROVIDERS: ATTEND Family Medicine | DX: Z53.9 Procedure and treatment not carried out, unspecified reason (principal) ==

== ENCOUNTER → 2020-04-01 | Outpatient (CLI) | payer OTHER ==
--- NOTE | 2020-04-01 08:14 | US ---
EXAMINATION TYPE: US abdomen complete DATE OF EXAM: 04/01/2020 COMPARISON: NONE CLINICAL HISTORY: R10.84 abdominal pain. EXAM MEASUREMENTS: Liver Length: 11.7 cm Gallbladder Wall: 0.2 cm CBD: 0.5 cm Spleen: not seen Right Kidney: 11.8 x 4.5 x 5.2 cm Left Kidney: 11.2 x 5.2 x 5.2 cm Pancreas: portions obscured by bowel gas, visualized portions are normal Liver: wnl Gallbladder: wnl Evidence for sonographic Escobar's sign: CBD: wnl Spleen: not seen (patient thin with tight intercostal spaces and extensive LUQ overlying bowel genia nt) Right Kidney: wnl Left Kidney: difficult to visualize (patient thin with tight intercostal spaces and extensive LUQ ov erlying bowel content) possible mild hydro Abdominal aorta prominent, there are atheromatous changes, proximal abdominal aorta measures 3 cm. Mo re distally abdominal aorta measures approximately 2.3 cm in greatest dimension. Inferior vena cava: Mildly prominent centrally in its visualized portion. There is no ascites. IMPRESSION: Exam is limited. Findings suggest some mild left-sided hydronephrosis. Mild aortic ectasi a
[2020-04-01 09:19] LABS: Amylase 53 U/L (30-110); LDH 473 U/L (313-618)
[2020-04-01 09:24] LABS: Appearance,Urine Clear (Clear); Bilirubin,Urine Negative (Negative); Blood,Urine Negative (Negative); Color,Urine Yellow; Glucose,Urine (UA) Negative (Negative); Ketones,Urine Trace (Negative); Leukocyte Esterase,Urine Negative (Negative); Nitrite,Urine Negative (Negative); PH, Urine 6.5 (5.0-8.0); Protein,Urine Negative (Negative); Specific Gravity,Urine 1.024 (1.001-1.035); Urobilinogen,Urine <2.0 mg/dL (<2.0)
[2020-04-01 10:11] LABS: C Reactive Protein <5.0 mg/L (<10.0)
--- NOTE | 2020-04-01 11:46 | FL ---
EXAMINATION TYPE: FL UGI air w small bowel DATE OF EXAM: 04/01/2020 COMPARISON: None HISTORY: Dysphasia TECHNIQUE: Upper gastrointestinal tract and small bowel follow-through is performed. Upper GI is perf ormed utilizing double air contrast technique. Multiple overhead radiographs and fluoroscopic spot im ages were obtained. FINDINGS: Upper GI: Esophagus dilates to normal caliber has normal contour to the gastroesophageal junction. Ga stroesophageal junction opens to normal caliber. No intraluminal or extramural defects are evident. T here is complete stripping the esophageal bolus the horizontal drinking position. Multiple episodes of reflux were evident during the examination to the level of the clavicles. Fundus body and antrum of the stomach visualized are normal. No intraluminal or extramural defects ar e evident. Gastric folds are unremarkable. Barium readily empties into the normally positioned duoden al cap and sweep. Duodenal fold pattern is normal. Small bowel follow-through: Following the additional oral administration of contrast multiple overhea d radiographs were obtained. Fluoroscopic spot imaging and real-time fluoroscopy was performed. Trans it time to the colon was just over 70 minutes. Terminal ileum is unremarkable. Small bowel loops are freely mobile. Ileal and jejunal fold pattern is normal IMPRESSION: 1. Multiple episodes of gastroesophageal reflux. 2. Upper GI is otherwise unremarkable. 3. Normal small bowel follow-through
[2020-04-01 17:27] LABS: Codfish IgE <0.10 kU/L; Egg White IgE <0.10 kU/L
[2020-04-01 17:40] LABS: Clam IgE <0.10 kU/L; Scallop IgE <0.10 kU/L; Walnut IgE (Food) <0.10 kU/L
[2020-04-01 17:41] LABS: Peanut IgE <0.10 kU/L; Shrimp IgE <0.10 kU/L; Soybean IgE <0.10 kU/L
[2020-04-01 17:47] LABS: Hepatitis A Antibody IgM Non-Reactive (Non-Reactive); Hepatitis B Core IgM Non-Reactive (Non-Reactive); Hepatitis B Surface Antigen Non-Reactive (Non-Reactive); Hepatitis C IgG Antibody Non-Reactive (Non-Reactive)
[2020-04-01 18:11] LABS: Gliadin AB IgA, Deaminated NEGATIVE (NEGATIVE); Gliadin AB IgA, Unit 0.4 U/mL; Gliadin AB IgG, Deaminated NEGATIVE (NEGATIVE)
== END | disposition home or self-care (01) ==
LOC: RADUSMAIN 06:27
PROVIDERS: ATTEND Family Medicine
DX: N13.30 Unspecified hydronephrosis (principal); I77.819 Aortic ectasia, unspecified site; K21.9 Gastro-esophageal reflux disease without esophagitis; R13.10 Dysphagia, unspecified; R11.0 Nausea; R63.0 Anorexia; R10.9 Unspecified abdominal pain
CPT/HCPCS: 74240; 74248; 76700; 80074; 81003; 82150; 82785; 83516; 83615; 83690; 84443; 85652; 86003; 86140; 87086

== ENCOUNTER → 2021-07-24 | Outpatient (CLI) | payer MEDICARE, OTHER ==
--- NOTE | 2021-07-24 10:19 | US ---
EXAMINATION TYPE: US abdomen complete DATE OF EXAM: 07/24/2021 COMPARISON: US CLINICAL HISTORY: N13.2 hydronephrosis. Hydronephrosis, screening for AAA EXAM MEASUREMENTS: Liver Length: 15.5 cm Gallbladder Wall: 0.2 cm CBD: 0.5 cm Spleen: 8.2 cm Right Kidney: 11.7 x 4.6 x 5.3 cm Left Kidney: 10.9 x 5.0 x 5.1 cm Pancreas: wnl Liver: wnl Gallbladder: wnl Evidence for sonographic Escobar's sign: No CBD: wnl Spleen: wnl Right Kidney: wnl Left Kidney: Possible parapelvic cysts vs. hydro, largest possible cyst= 2.9 cm Upper IVC: wnl Abd Aorta: Ectatic without measuring >3cm The liver is homogenous. The intrahepatic portion of the IVC and proximal abdominal aorta are within normal limits. There is no evidence of cholelithiasis. Common bile duct is unremarkable. The visu alized portions of the pancreas are homogenous. The spleen is unremarkable. IMPRESSION: 1. Mild left-sided hydronephrosis.
== END | disposition home or self-care (01) ==
LOC: RADUSWWP 08:48
PROVIDERS: ATTEND Family Medicine
DX: N13.30 Unspecified hydronephrosis (principal)
CPT/HCPCS: 76700

== ENCOUNTER → 2021-08-14 | Outpatient (CLI) | payer MEDICARE, OTHER ==
--- NOTE | 2021-08-15 04:48 | MR ---
EXAMINATION TYPE: MR knee LT wo con DATE OF EXAM: 08/14/2021 COMPARISON: 01/22/2012 HISTORY: Lt knee posterior and kneecap pain and swelling x9 months The posterior cruciate ligament is intact. There is some thinning of the anterior cruciate ligament. There is moderate size knee joint effusion. There is complex horizontal tear through the posterior ho rn of the medial meniscus extending to the superior surface. There is extensive tear in the anterior horn of the medial meniscus. There is thinning of the anterior horn lateral meniscus. There is intras ubstance tear of the posterior horn lateral meniscus there is narrowing of the medial joint space. Th ere is spurring of the femoral and tibial condyles. The collateral ligaments appear intact. There is no evidence of a fracture. I see no focal bone destruction IMPRESSION: There are tears of the medial and lateral menisci as above. There is some thinning of the anterior cr uciate ligament. Moderate knee joint effusion. Compared to old exam the knee joint effusion is increased. Meniscal tears appear not significantly di fferent than old exam. Osteoarthritic joint space narrowing not significantly different than old exam .
== END | disposition home or self-care (01) ==
LOC: RADMRIMAIN 20:04
PROVIDERS: ATTEND Orthopaedic Surgery
DX: S83.242A Other tear of medial meniscus, current injury, left knee, initial encounter (principal); M25.462 Effusion, left knee; M17.12 Unilateral primary osteoarthritis, left knee; X58.XXXA Exposure to other specified factors, initial encounter

== ENCOUNTER → 2021-08-31 | Outpatient (CLI) | payer MEDICARE, OTHER ==
[2021-08-31 11:55] LABS: Basophils # (A) 0.1 k/uL (0-0.2); Basophils % (A) 1 %; Eosinophils # (A) 0.2 k/uL (0-0.7); Eosinophils % (A) 4 %; HCT 45.6 % (39.0-53.0); HGB 15.1 gm/dL (13.0-17.5); Lymphocytes # (A) 1.4 k/uL (1.0-4.8); Lymphocytes % (A) 28 %; MCH 32.5 pg (25.0-35.0); MCHC 33.2 g/dL (31.0-37.0); Mean Platelet Volume 8.4; Monocytes # (A) 0.5 k/uL (0-1.0); Monocytes % (A) 10 %; Neutrophils # (A) 2.7 k/uL (1.3-7.7); Neutrophils % (A) 54 %; Platelet Count 200 k/uL (150-450); RBC 4.66 m/uL (4.30-5.90); WBC 4.9 k/uL (3.8-10.6)
[2021-08-31 12:40] LABS: Potassium 4.6 mmol/L (3.5-5.1)
== END | disposition home or self-care (01) ==
LOC: LABPAT 10:48
PROVIDERS: ATTEND Orthopaedic Surgery
DX: Z01.812 Encounter for preprocedural laboratory examination (principal); M23.92 Unspecified internal derangement of left knee
CPT/HCPCS: 36415; 80051; 85025; 93005

== ENCOUNTER 2021-09-14 14:18 | Day surgery (SDC) | payer MEDICARE, OTHER ==
[2021-09-13 11:35] VITALS: BMI 23.7
--- NOTE | 2021-09-13 14:20 | HP ---
HISTORY AND PHYSICAL REASON FOR ADMISSION: Surgery scheduled for 09/14/2021 HISTORY OF PRESENT ILLNESS: Nelson Busch is a 65-year-old gentleman seen with progressive left knee pain. We discussed options for treatment. He elected to proceed with left knee arthroscopy. Consent was obtained. PAST MEDICAL HISTORY: Osteoarthritis. PAST SURGICAL HISTORY: Right knee arthroscopy. MEDICATIONS: Aleve. ALLERGIES: None. SOCIAL HISTORY: He denies tobacco use. PHYSICAL EVALUATION OF THE LEFT KNEE: Range of motion is -3/4 to 110 degrees. Mild effusion. Tenderness along the medial joint line, tenderness lateral joint line. Positive medial Alfa's. Positive lateral Alfa's. Ligaments stable. Hip rotation without pain. Distal neurovascular exam intact. RADIOGRAPHS: Left knee radiographs revealed moderate osteoarthritis. MRI left knee revealed medial and lateral meniscal tears. IMPRESSION: Internal derangement of left knee with medial and lateral meniscal tears. PLAN: Left knee arthroscopy with partial meniscectomy and debridement. Surgery scheduled for 09/14/2021. MMODL / IJN: [id number] /
[~2021-09-14 14:18] MED LIST changes: +DEXAMETHASONE SOD PHOSPHATE 4 MG/ML 1 ML VIAL IV ONE; +HYDROmorphone 0.5 MG/0.5 ML SYRINGE IVP PRN; +LACTATED RINGERS 1,000 ML IV SCH; -LIDOCAINE 1% INJ 10MG/ML (20 ML MDV) ONE; -LIDOCAINE 1% INJ 10MG/ML (20 ML MDV) SQ ONE; +MIDAZOLAM 2 MG/2 ML VIAL IV PRN; -MIDAZOLAM 2 MG/2 ML VIAL ONE; +ONDANSETRON 4 MG/2 ML VIAL IVP ONE; -PROPOFOL 10 MG/ML 20 ML VIAL IV ONE; -SODIUM CHLORIDE 0.9% 1,000 ML IV ONE; -SODIUM CHLORIDE 0.9% 1,000 ML IV SCH; -ceFAZolin IN SWFI 2 GM/20 ML SYRINGE IVP STA; -fentaNYL (PF) 50 MCG/ML 2 ML AMP ONE
[2021-09-14 15:33] LABS: Glucose,Whole Blood 87 mg/dL (75-99)
[2021-09-14] MEDS ORDERED: fentaNYL (PF) 50 MCG/ML 2 ML AMP ONE (16:36)
[2021-09-14] MEDS ORDERED: LIDOCAINE 1% INJ 10MG/ML (20 ML MDV) ONE (16:36)
[2021-09-14] MEDS ORDERED: MIDAZOLAM 2 MG/2 ML VIAL ONE (16:36)
[2021-09-14] MEDS ORDERED: PROPOFOL 10 MG/ML 20 ML VIAL IV ONE (16:36)
[2021-09-14] MEDS ORDERED: KETOROLAC 15 MG/ML 1 ML VIAL ONE (16:36)
[2021-09-14] MEDS ORDERED: SUCCINYLCHOLINE CHLORIDE 100 MG/5 ML SYR IV ONE (16:36)
--- NOTE | 2021-09-14 17:23 | P.OP ---
Date of Procedure: 09/14/21 Preoperative Diagnosis: Internal derangement left knee Postoperative Diagnosis: 1. Tear medial meniscus left knee 2. Grade 3 chondromalacia medial femoral condyle left knee 3. Grade 2/3 chondromalacia patellofemoral joint left knee 4. Reactive synovitis medial, lateral and suprapatellar compartments left knee Procedure(s) Performed: 1. Arthroscopic partial medial meniscectomy left knee 2. Arthroscopic chondroplasty medial femoral condyle left knee 3. Arthroscopic chondroplasty patellofemoral joint left knee 4. Arthroscopic partial synovectomy medial, lateral and suprapatellar compartments left knee Anesthesia: OTTO, local Surgeon: Trevor Plasencia Estimated Blood Loss (ml): 7 Pathology: none sent Condition: stable Disposition: PACU Indications for Procedure: 65-year-old gentleman seen with progressive left knee pain. After treatment options were discussed, he elected to proceed with arthroscopy. Operative Findings: See description of procedure Description of Procedure: Patient was taken to the operative suite. Patient underwent a general anesthetic by the department of anesthesia. Patient was given preoperative antibiotics. The left lower extremity was placed in a well-padded arthroscopic leg sanchez. The left leg was prepped and draped in the normal sterile orthopedic fashion. A lateral parapatellar and suprapatellar incision was made. Trochars were inserted. Arthroscopy was initiated. Suprapatellar pouch revealed diffuse thick reactive synovitis. The patellofemoral joint appeared to articulate congruently. There was grade 2/3 chondromalacia of the patellofemoral joint with some diffuse osteochondral tears present. The scope was guided into the medial gutter. No loose bodies or plica were identified. The scope was then guided into the medial compartment. A medial parapatellar incision was made. Trocar inserted followed by probe. There was a complex tear posterior horn medial meniscus. There were grade 3 chondromalacia changes medial femoral condyle with some osteochondral flap tears present. There was thick reactive synovitis anteriorly. I performed a partial medial meniscectomy getting down to stable meniscal tissue. I performed a chondroplasty of the medial femoral condyle getting down to stable osteochondral tissue. I performed a partial synovectomy decompressing the thick reactive synovitis. The residual meniscus was probed and found to be stable. The residual osteochondral surface was stable. There was good decompression of the synovitis. Scope and probe were then guided into the intercondylar notch. Cruciates were identified, probed and found to be stable. The scope and probe were then guided into lateral compartment. The lateral meniscus reveals some superficial fraying in the midbody area. There were grade 1 chondromalacia changes lateral compartment. There were no osteochondral tears present. There was thick reactive synovitis anteriorly. I introduced a motorized shaver and debrided out that area. Superficial fraying lateral meniscus. I now performed a partial synovectomy decompressing the thick reactive synovitis. The shaver was removed. There was good decompression of synovitis. The scope was in guided back into the suprapatellar compartment. I introduced a motorized shaver into the superpatellar compartment. I debrided some piecemeal fragments of meniscus I encountered. I performed a chondroplasty of the patellofemoral joint. I performed a partial synovectomy. The shaver was removed. The residual osteochondral surface of the patellofemoral joint appeared stable. There was good decompression of synovitis. I now took one more look on the entire knee, no residual debris. Instruments were now removed from the joint. The joint was infiltrated with .25% Marcaine. Steri-Strips were applied to the portal sites. Sterile dressings were applied. The patient was placed into a KIAN hose. No tourniquet was utilized. The patient was awakened, transferred to a bed and taken to recovery stable satisfactory condition.
[2021-09-14 17:26] VITALS: TEMP 97.6
[2021-09-14] MEDS ORDERED: HYDROcodone/APAP 5-325MG 1 EACH TAB ONE (18:02)
[2021-09-14 18:03] VITALS: RESP 16
[2021-09-14] MEDS ORDERED: HYDROcodone/APAP 5-325MG 1 EACH TAB PO ONE (18:06)
[2021-09-14 18:27] VITALS: BP 137/76; PULSE 71
== END 2021-09-14 18:39 | disposition home or self-care (01) ==
LOC: OR 14:18
PROVIDERS: ATTEND Orthopaedic Surgery
DX: S83.242A Other tear of medial meniscus, current injury, left knee, initial encounter (principal); M19.90 Unspecified osteoarthritis, unspecified site
CPT/HCPCS: 29881; J2250; J1100; J0690; J2405; J2001; J3010; J1885; J0330; J2704

== ENCOUNTER → 2022-04-19 | Outpatient (CLI) | payer MEDICARE, OTHER ==
--- NOTE | 2022-04-19 09:41 | US ---
EXAMINATION TYPE: US duplex aorta DATE OF EXAM: 04/19/2022 COMPARISON: US 2020 CLINICAL HISTORY: I77.811 ABD AORTIC ECTASIA. EXAM MEASUREMENTS: Abdominal Aorta: Proximal: 2.5 x 3.2cm Mid: 2.0 x 2.6cm Distal: 2.1 x 2.3cm Right Iliac: 1.4 x 1.7cm Left Iliac: 1.3 x 1.6cm There is mild prominence of the iliac vessels. No focal aneurysms within the iliac vessels or aorta a re identified. IMPRESSION: 1. No suspicious ultrasound findings for aneurysm of the abdominal aorta. Iliac vessels and slight pr ominence.
== END | disposition home or self-care (01) ==
LOC: RADUSWWP 08:45
PROVIDERS: ATTEND Internal Medicine
DX: I77.811 Abdominal aortic ectasia (principal)
CPT/HCPCS: 93979

== ENCOUNTER 2022-04-26 07:32 | Day surgery (SDC) | payer MEDICARE, OTHER ==
[2022-04-24 11:59] VITALS: BMI 23.7
[2022-04-26] MEDS ORDERED: LACTATED RINGERS 1,000 ML IV SCH (07:45)
[2022-04-26] MEDS ORDERED: LIDOCAINE 1% (10MG/ML) FOR IV START INTRADERMA ONE (08:04)
[2022-04-26 08:05] VITALS: TEMP 97.3
[2022-04-26] MEDS ORDERED: LIDOCAINE 2% INJ 20 MG/ML (2 ML VIAL) ONE (08:32)
[2022-04-26] MEDS ORDERED: PROPOFOL 10 MG/ML 20 ML VIAL IV ONE (08:32)
--- NOTE | 2022-04-26 08:38 | P.GSHP ---
History of Present Illness H&P Date: 04/26/22 Chief Complaint: GERD, screening colonoscopy This a 66-year-old male presents today for EGD and screening colonoscopy. Patient denies a significant GI complaints. Past Medical History Past Medical History: GERD/Reflux, Rheumatoid Arthritis (RA) Additional Past Medical History / Comment(s): hypoglycemia, hx colon polyps, loop recorder placed after episode of v-tach 05/2019 History of Any Multi-Drug Resistant Organisms: None Reported Past Surgical History: Orthopedic Surgery Additional Past Surgical History / Comment(s): Colonoscopy, EGD, arthroscopies both knees, loop recorder Past Anesthesia/Blood Transfusion Reactions: No Reported Reaction Type of Cardiac Device: Loop Device Placement Date:: 2018 Smoking Status: Never smoker - Past Family History Mother Family Medical History: Cancer Additional Family Medical History / Comment(s): breast Father Additional Family Medical History / Comment(s): brain tumor Son(s) Family Medical History: Cancer Additional Family Medical History / Comment(s): non-hodgkins lymphoma Medications and Allergies Home Medications Medication Instructions Recorded Confirmed Type Naproxen Sodium [Aleve] 220 mg PO BID PRN 09/13/21 04/26/22 History Famotidine 20 mg PO BID 04/24/22 04/26/22 History Allergies Allergy/AdvReac Type Severity Reaction Status Date / Time No Known Allergies Allergy Verified 04/26/22 07:58 Surgical - Exam Vital Signs Temp Pulse Resp BP Pulse Ox 97.3 F L 68 16 153/85 97 04/26/22 08:03 04/26/22 08:03 04/26/22 08:03 04/26/22 08:03 04/26/22 08:03 - General well developed, well nourished, no distress - Eyes PERRL - ENT normal pinna - Respiratory normal expansion - Cardiovascular Rhythm: regular - Abdomen Abdomen: soft, non tender Assessment and Plan Assessment: GERD we'll perform EGD. We'll also perform screening colonoscopy.
--- NOTE | 2022-04-26 08:57 | P.OP ---
Date of Procedure: 04/26/22 Preoperative Diagnosis: GERD Screening colonoscopy Postoperative Diagnosis: Antral gastritis Procedure(s) Performed: EGD Colonoscopy Anesthesia: MAC Surgeon: Harish Peck Pathology: other (Antrum) Condition: stable Disposition: PACU Description of Procedure: The patient's placed on the endoscopy table lateral position. He received IV sedation. The gastroscope was oropharynx passed in the esophagus into the stomach. Scope was then placed through the pylorus. The first and second portion duodenum appeared normal. Scope was brought back the antrum this. Mildly inflamed. A biopsies performed. Scope was unretroflexed and remainder the stomach appeared normal. He was no significant hiatal hernia. The GE junction was at 40 cm. The distal esophagus. Normal. The proximal esophagus normal. Scope withdrawn for patient. Next digital rectal exam was performed. This revealed no abnormalities. The flexible colonoscope was then placed patient anus and passed throughout the entire colon. The ileocecal valve was visualized. The cecum, ascending and transverse colon appeared normal. In the descending and sigmoid colon there is mild diverticular changes. Scope was then brought back the rectum and this appeared normal. Scope withdrawn for patient.
[2022-04-26 09:20] VITALS: PULSE 54
[2022-04-26 09:41] VITALS: BP 131/75; RESP 20
[2022-04-26 09:45] LABS: Glucose,Whole Blood 81 mg/dL (70-110)
--- NOTE | 2022-04-26 12:36 | NM ---
EXAMINATION TYPE: NM hepatobiliary w CCK DATE OF EXAM: 04/26/2022 COMPARISON: Ultrasound abdomen 07/24/2021 HISTORY: Indigestion TECHNIQUE: After the intravenous administration of 4 mCi Tc 99m Mebrofenin hepatobiliary scintigraphy is performed. Immediate images post injection. FINDINGS: There is satisfactory initial accumulation of tracer by the liver. The gallbladder is visualized wit hin 10 minutes. The small bowel activity is noted on delayed images at 75 minutes. At one hour CCK was administered, patient was injected with 1.64 mcg of Kinevac, and gallbladder ejection fraction is calculated at 89 %, above the upper limit of the normal range. Therefore there is no scintigraphic evidence of cystic or common bile duct obstruction to suggest acute cholecystitis or gallbladder dysk inesia. IMPRESSION: Findings could possibly represent hyperdynamic gallbladder.
== END 2022-04-26 09:45 | disposition home or self-care (01) ==
LOC: ORWHC2ENDO 07:32
PROVIDERS: ATTEND Surgery
DX: K57.30 Diverticulosis of large intestine without perforation or abscess without bleeding (principal); K29.70 Gastritis, unspecified, without bleeding; K21.9 Gastro-esophageal reflux disease without esophagitis; Z86.010 Personal history of colon polyps; M06.9 Rheumatoid arthritis, unspecified; Z95.818 Presence of other cardiac implants and grafts; Z80.3 Family history of malignant neoplasm of breast; Z80.7 Family history of other malignant neoplasms of lymphoid, hematopoietic and related tissues; Z79.899 Other long term (current) drug therapy
CPT/HCPCS: 88305; 78227; 43239; A9537; J2805; J2704; J2001; G0121

== ENCOUNTER 2022-12-03 12:46 | Day surgery (SDC) | payer MEDICARE, OTHER ==
[2022-11-29 10:34] VITALS: BMI 24.3
[~2022-12-03 12:46] MED LIST changes: -DEXAMETHASONE SOD PHOSPHATE 4 MG/ML 1 ML VIAL IV ONE; -HYDROmorphone 0.5 MG/0.5 ML SYRINGE IVP PRN; -LACTATED RINGERS 1,000 ML IV SCH; -MIDAZOLAM 2 MG/2 ML VIAL IV PRN; -ONDANSETRON 4 MG/2 ML VIAL IVP ONE; +SODIUM CHLORIDE 0.9% 1,000 ML IV SCH; +ceFAZolin 1 GM in SODIUM CHLORIDE 0.9% IRRIG BTL 250 ML IRRIGATION PRN
[2022-12-03] MEDS ORDERED: SODIUM CHLORIDE 0.9% 1,000 ML IV ONE (13:14)
[2022-12-03 13:26] VITALS: RESP 16
[2022-12-03 13:29] LABS: Basophils # (A) 0.1 k/uL (0-0.2); Basophils % (A) 1 %; Eosinophils # (A) 0.2 k/uL (0-0.7); Eosinophils % (A) 4 %; HCT 47.4 % (39.0-53.0); HGB 16.1 gm/dL (13.0-17.5); Lymphocytes % (A) 34 %; MCH 32.5 pg (25.0-35.0); MCV 95.4 fL (80.0-100.0); Mean Platelet Volume 8.4; Monocytes # (A) 0.5 k/uL (0-1.0); Monocytes % (A) 8 %; Neutrophils % (A) 51 %; Platelet Count 175 k/uL (150-450); RBC 4.97 m/uL (4.30-5.90); RDW 12.2 % (11.5-15.5); WBC 5.8 k/uL (3.8-10.6)
[2022-12-03 13:42] LABS: African American GFR (CKD) >90 (>60 ml/min/1.73 sqM); Anion Gap 6 mmol/L; Blood Urea Nitrogen 16 mg/dL (9-20); Calcium 9.2 mg/dL (8.4-10.2); Carbon Dioxide 30 mmol/L (22-30); Chloride 105 mmol/L (98-107); Glucose 97 mg/dL (74-99); Non-African American GFR(CKD) >90 (>60 ml/min/1.73 sqM); Sodium 141 mmol/L (137-145)
[2022-12-03] MEDS ORDERED: fentaNYL (PF) 50 MCG/ML 2 ML AMP ONE (16:50)
[2022-12-03] MEDS: MIDAZOLAM 2 MG/2 ML VIAL IV ONE ×2 (17:16→17:33)
[2022-12-03] MEDS ORDERED: fentaNYL (PF) 50 MCG/ML 2 ML AMP IV ONE (17:16)
[2022-12-03] MEDS ORDERED: LIDOCAINE 1% INJ 10MG/ML (30 ML VIAL-PF) SQ ONE ×2 (17:39→17:44)
--- NOTE | 2022-12-03 18:21 | CA ---
Transthoracic Echo Report Name: Nelson Busch Age: 67 Gender: M : 1955 Exam Date: 12/03/2022 13:21 Exam Location: [facility] Ht (in): 73 Wt (lb): 184 Ordering Physician: Demetrius Nickerson MD ([id number]) Attending/Referring Phys: Demetrius Nickerson MD ([id number]) Field Professional Kat Chicas RDCS Procedure CPT: Indications: PRIOR TO PPM IMPLANT Cardiac Hx: Technical Quality: Fair Contrast 1: Total Dose (mL): Contrast 2: Total Dose (mL): MEASUREMENTS (Male / Female) Normal Values 2D ECHO LV Diastolic Diameter PLAX 4.5 cm 4.2 - 5.9 / 3.9 - 5.3 cm LV Systolic Diameter PLAX 2.9 cm IVS Diastolic Thickness 1.0 cm 0.6 - 1.0 / 0.6 - 0.9 cm LVPW Diastolic Thickness 0.9 cm 0.6 - 1.0 / 0.6 - 0.9 cm LV Relative Wall Thickness 0.4 LA Volume 44.1 cm??? 18 - 58 / 22 - 52 cm??? M-MODE Aortic Root Diameter MM 2.9 cm LA Systolic Diameter MM 2.3 cm LA Ao Ratio MM 0.8 AV Cusp Separation MM 1.8 cm DOPPLER AV Peak Velocity 135.0 cm/s AV Peak Gradient 7.3 mmHg AV Mean Velocity 96.8 cm/s AV Mean Gradient 4.2 mmHg AV Velocity Time Integral 29.1 cm LVOT Peak Velocity 107.0 cm/s LVOT Peak Gradient 4.6 mmHg MV Area PHT 2.2 cm??? Mitral E Point Velocity 46.2 cm/s Mitral A Point Velocity 57.9 cm/s Mitral E to A Ratio 0.8 MV Deceleration Time 344.7 ms MV E' Velocity 8.9 cm/s Mitral E to MV E' Ratio 5.2 TR Peak Velocity 242.6 cm/s TR Peak Gradient 23.5 mmHg Right Ventricular Systolic Press 26.4 mmHg FINDINGS Left Ventricle Normal Left ventricular size, wall thickness, systolic function with no obvious regional wall motion abnormalities. Normal Left ventricular diastolic filling pattern. Left ventricular ejection fraction is estimated at 55-60 %. Right Ventricle Normal right ventricular size and function. Right ventricular systolic pressure within normal limits. Right Atrium Normal right atrial size. Left Atrium Normal left atrial size. Mitral Valve Structurally normal mitral valve. Mild mitral regurgitation. Aortic Valve Trileaflet aortic valve. No aortic valve stenosis or regurgitation. Tricuspid Valve Structurally normal tricuspid valve. Mild tricuspid regurgitation. Pulmonic Valve Structurally normal pulmonic valve. Trace pulmonic regurgitation. Pericardium No pericardial effusion. Aorta Normal size aortic root and proximal ascending aorta. CONCLUSIONS Normal LV function Previewed by: Dr. Augustine Ortiz MD (Electronically Signed) Final Date: 03 December 2022 18:20
[2022-12-03] MEDS ORDERED: ACETAMINOPHEN IV (For NPO) 1,000 MG in EMPTY BAG 1 BAG IVPB ONE (19:14)
[2022-12-03] MEDS ORDERED: HYDROcodone/APAP 5-325MG 1 EACH TAB PO PRN (19:14)
[2022-12-03] MEDS ORDERED: FAMOTIDINE 20 MG TAB PO PRN (19:17)
--- NOTE | 2022-12-03 19:21 | P.EPPROC ---
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 Written informed consent was obtained prior to the procedure. Conscious sedation provided. IV antibiotics administered. Local anesthesia administered. A 4 cm incision made in the pectoral area. Subfascial pocket made. Venous accesses obtained Venous sheaths placed. Leads placed in the right heart Atrial lead position the right atrial appendage. [employer] atrial screw-in lead implanted in the right atrial appendage P waves 2.5 mV pacing threshold 0.5 V at 0.4 ms and pacing impedance of 550 ohms 10 V test negative RV lead position in the RV septum. Pacing threshold 0.75 V at 0.4 ms, R waves 3.8 mV and pacing impedance 840 ohms 10 V test negative Device fuel attendant Villag[employer] Dual-chamber pacemaker device connected to the leads and placed in the subfascial pocket Patient tolerated the procedure well without acute complications Pacemaker programming DDD, VIP mode Rate drop response programmed
--- NOTE | 2022-12-03 20:13 | P.EPPROC ---
- EP Procedure Note Electrophysiology Procedure Note: Procedure: Loop explant under sedation and local anesthesia. Diagnosis: Loop monitor at [facility] Patient was brought to the EP lab in a fasting state. Written informed consent was obtained prior to the procedure. The subcutaneous device was successfully explanted under local anesthesia. Preoperative antibiotics were administered. The wound was closed in layers and dressed per protocol. Result: Successful loop monitor explantation.
[2022-12-04] MEDS: ACETAMINOPHEN TAB 325 MG TAB PO PRN ×2 (03:40→12:09)
[2022-12-04 04:16] VITALS: PULSE 100
[2022-12-04 08:11] VITALS: BP 119/83; TEMP 97.8
[2022-12-04] MEDS ORDERED: ATORVASTATIN 20 MG TAB PO SCH (09:00)
--- NOTE | 2022-12-04 09:09 | XR ---
EXAMINATION TYPE: XR chest 1V portable DATE OF EXAM: 12/04/2022 COMPARISON: 03/05/2020 HISTORY: Lead placement check TECHNIQUE: Single frontal view of the chest is obtained. FINDINGS: There is been interval placement of a dual-lead pacemaker with generator over the left [address]. Lead placement appears unremarkable. Cardiac mediastinal silhouette is unremarkable. The heart is not enlarged and there is no pulmonary vascular congestion. Lungs are clear. No pneumothorax. No acu te osseous abnormalities. IMPRESSION: No acute process. Unremarkable lead placement.
--- NOTE | 2022-12-04 15:39 | P.DS ---
Providers Attending physician: Demetrius Nickerson Primary care physician: Maciej Calzada MD Hospital Course: Patient is doing well from a cardiac standpoint No dizziness lightheadedness No chest discomfort He underwent a dual-chamber pacemaker implantation for cardioinhibitory syncope Pacemaker site is healed well. Minimal soakage Mild tenderness Care lungs on examination no rhonchi no crackles Normal heart sounds normal S1 normal S2 Extremities are warm no edema Blood pressure is 119/83 mmHg pulse rate 95 beats a minute afebrile Breath sounds are clear no rhonchi no crackles Heart sounds S1 and S2 are normal Impression Cardioinhibitory syncope with severe sinus arrest Documented on loop monitor Status post dual-chamber pacemaker implantation, successful Pacemaker is functioning normally Chest x-ray was normal Loop monitor was explanted Plan Discharge home on rosuvastatin as before We'll see him in a week's time in the device clinic Patient Condition at Discharge: Good Plan - Discharge Summary Discharge Rx Participant: Yes New Discharge Prescriptions: Continue RX: Famotidine 20 mg PO BID PRN PRN Reason: Acid Reflux RX: Rosuvastatin Calcium 10 mg PO DAILY Discharge Medication List RX: Famotidine 20 mg PO BID PRN 04/24/22 [History] RX: Rosuvastatin Calcium 10 mg PO DAILY 11/29/22 [History] Follow up Appointment(s)/Referral(s): Demetrius Nickerson MD [STAFF PHYSICIAN] - 12/13/22 3:00 pm (Follow-up in the device clinic in one week Dr Nickerson Appointment : MARCH 25 930AM ) Patient Instructions/Handouts: Pacemaker (DC), Pacemaker (GEN) Activity/Diet/Wound Care/Special Instructions: PATIENT EDUCATION MATERIAL Instructions following a heart rhythm device implant. 1. Keep dressing DRY for 5 DAYS. You may cover the area with Saran or Cling Wrap, prior to a shower. 2. The dressing will be removed in the Device Clinic at [facility]. Absorbable sutures were used to close the wound. 3. Avoid raising the left arm above the shoulder level. 4 week restriction 4. Avoid arm movements, like backscratching, rubbing the head, or pulling on a cord. 4 weeks restriction 5. Gentle range of motion movements of the shoulder, closest to the incision should be performed to avoid a frozen shoulder. (Pendulum exercises of the shoulder) 6. The opposite arm may be used freely. 7. Avoid driving for 7 days. 8. Avoid activities such as golfing, swimming, weed whacking, lifting more than 10 pounds weight, bowling, gymnastics and weight training/lifting. (6 weeks restriction) 9. Activities such as wood chopping with an axe, pull-ups in the gymnasium, power lifting, arc-welding, being close to home induction cooktops will always be a problem. 10. Arm sling is only a reminder not to raise the arm above the head. You do not need to keep the arm completely immobilized. Your free to move the arm and use it and for normal activities. In case of any problems, please call [facility], [place], @ [phone], Attention: Device Clinic Device clinic follow-up in 5 days Follow-up with primary professor of anthropology in 2-3 months Discharge Disposition: HOME SELF-CARE
== END 2022-12-04 12:28 | disposition home or self-care (01) ==
LOC: CATHEP 12:46 → 6NMEDSUR 18:47 → CATHEP 12-04 12:28
PROVIDERS: ATTEND Internal Medicine Clinical Cardiac Electrophysiology
DX: R00.1 Bradycardia, unspecified (principal); K21.9 Gastro-esophageal reflux disease without esophagitis; Z95.0 Presence of cardiac pacemaker; Z79.899 Other long term (current) drug therapy
CPT/HCPCS: 93306; 80048; 84443; 85025; 33208; J2250; J0690; J2001; J3010; 33286; 71045

== ENCOUNTER 2024-05-12 11:23 | Day surgery (SDC) | payer MEDICARE ==
[2024-05-12 12:03] VITALS: BP 148/83; PULSE 70; RESP 18; TEMP 97.7
[2024-05-12] MEDS: SODIUM CHLORIDE 0.9% 1,000 ML IV SCH (12:03)
[2024-05-12] MEDS: IV FLUID CONTINUATION 1,000 ML IV ONE (12:03)
[2024-05-12] MEDS: IOPAMIDOL-250 50ML BTL IVP ONE (14:50)
--- NOTE | 2024-05-12 17:38 | P.EPPROC ---
- EP Procedure Note Electrophysiology Procedure Note: Diagnosis Evidence of lead fracture, early with lead noise Final diagnosis Lead noise that can be provoked with shoulder girdle movement, evidence of early lead fracture/subclavian crush This lead is less than 18 months old, recent implant last year in 2022 Patent left subclavian and axillary vein Cinefluoroscopy of the leads did not reveal any clear-cut fracture Atrial lead in the right atrial appendage RV lead in the RV septum Both leads in stable position 15 cc IV dye injected into the left arm Patent left subclavian vein and axillary vein Plan This lead is less than 18 months old and is already showing signs of deterioration with early lead fracture. The vein is patent these are both active fix leads Suggest I would recommend extraction of both leads since they have both at risk for progressive dehiscence and deterioration I would replace them with leads using the cable technology/Sweet [employer] cable leads which would perform better over time The axillary vein access would have to be lateral I would implant a new right atrial lead using cable technology leads I would implant a new left bundle lead Detailed discussion with the patient and his
== END 2024-05-12 15:35 | disposition home or self-care (01) ==
LOC: CATHEP 11:23
PROVIDERS: ATTEND Internal Medicine Clinical Cardiac Electrophysiology
DX: I47.19 Other supraventricular tachycardia (principal); Z79.899 Other long term (current) drug therapy
CPT/HCPCS: 36005; 75820; Q9966

== ENCOUNTER → 2024-06-09 | Outpatient (CLI) | payer MEDICARE ==
[2024-06-09 15:58] LABS: HCT 39.4 % (39.6-50.0); HGB 13.4 g/dL (13.0-17.0); Mean Platelet Volume 9.7 FL (9.5-12.2); NRBC Per 100 WBC 0 X 10*3/uL (0.00-0.01); Platelet Count 283 X 10*3/uL (140-440); RBC 4.19 X 10*6/uL (4.40-5.60); RDW 12.6 % (11.5-14.5)
[2024-06-09 16:15] LABS: Blood Urea Nitrogen 19.2 mg/dL (9.0-27.0); Carbon Dioxide 22.2 mmol/L (21.6-31.8); Chloride 104 mmol/L (96-109); Potassium 4.6 mmol/L (3.5-5.5); Sodium 137 mmol/L (135-145)
== END | disposition home or self-care (01) ==
LOC: LABPAT 11:09
PROVIDERS: ATTEND Internal Medicine Clinical Cardiac Electrophysiology
DX: Z01.812 Encounter for preprocedural laboratory examination (principal); I47.29 Other ventricular tachycardia; I47.19 Other supraventricular tachycardia
CPT/HCPCS: 36415; 80051; 82565; 84520; 85027

== ENCOUNTER 2024-06-15 03:01 | Emergency (ER) | payer MEDICARE ==
[2024-06-15 03:35] VITALS: TEMP 97.6
[2024-06-15 04:21] LABS: Basophils % (A) 1 %; Eosinophils # (A) 0.3 k/uL (0-0.7); Eosinophils % (A) 6 %; HCT 40.3 % (39.0-53.0); HGB 13.4 gm/dL (13.0-17.5); Lymphocytes # (A) 1.2 k/uL (1.0-4.8); Lymphocytes % (A) 27 %; MCH 32.3 pg (25.0-35.0); MCHC 33.3 g/dL (31.0-37.0); MCV 96.9 fL (80.0-100.0); Mean Platelet Volume 7.7; Monocytes # (A) 0.4 k/uL (0-1.0); Monocytes % (A) 10 %; Neutrophils # (A) 2.3 k/uL (1.3-7.7); Neutrophils % (A) 54 %; Platelet Count 262 k/uL (150-450); RBC 4.16 m/uL (4.30-5.90); RDW 12.1 % (11.5-15.5); WBC 4.3 k/uL (3.8-10.6)
[2024-06-15 04:30] LABS: ALT 18 U/L (4-49); AST 23 U/L (17-59); African American GFR (CKD) >90 (>60 ml/min/1.73 sqM); Albumin 3.6 g/dL (3.5-5.0); Alkaline Phosphatase 57 U/L (38-126); Anion Gap 7 mmol/L; Blood Urea Nitrogen 15 mg/dL (9-20); Carbon Dioxide 25 mmol/L (22-30); Chloride 102 mmol/L (98-107); Glucose 108 mg/dL (74-99); Lipase 32 U/L (23-300); Non-African American GFR(CKD) >90 (>60 ml/min/1.73 sqM); Potassium 4.3 mmol/L (3.5-5.1); Sodium 134 mmol/L (137-145); Total Bilirubin 0.6 mg/dL (0.2-1.3); Total Protein 6.1 g/dL (6.3-8.2)
[2024-06-15] MEDS: ONDANSETRON ODT 4 MG TAB PO STA (04:32)
[2024-06-15] MEDS: MAG HYDROX/AL HYDROX/SIMETH 30 ML, HYOSCYAMINE ELIXIR 10 ML, LIDOCAINE VISCOUS 2% 10 ML PO STA (04:32)
--- NOTE | 2024-06-15 05:57 | ED ---
General Adult HPI - General Chief complaint: Recheck/Abnormal Lab/Rx Stated complaint: Abd pain Time Seen by Provider: 06/15/24 05:45 Source: patient Mode of arrival: ambulatory Limitations: no limitations - History of Present Illness Initial comments: Humza is a pleasant 68-year-old gentleman who presents the ER today for burning epigastric discomfort. Patient has been experiencing intermittent abdominal pain rashes and fevers for a number of weeks, he was seen by his primary care last week and subsequently diagnosed with Lyme disease he was prescribed doxycycline when he was here in the ER on Saturday. He has been compliant with this medication but continues to feel a burning epigastric pain loss of appetite he states he tries to eat when he takes medications but otherwise does not want to eat or drink. Patient does have a history of GERD and was previously on Pepcid he is not compliant with that medication he has not had a scope in a nu mber of years. He denies any nausea or vomiting at this time. - Related Data Home Medications Medication Instructions Recorded Confirmed Rosuvastatin Calcium 10 mg PO DAILY 11/29/22 05/12/24 Previous Rx's Medication Instructions Recorded Doxycycline [Vibramycin] 100 mg PO BID 10 Days #20 capsule 06/13/24 Pantoprazole Sodium [Protonix] 20 mg PO DAILY #10 tab 06/13/24 Pantoprazole Sodium [Protonix] 40 mg PO BID 14 Days #28 tab 06/15/24 Sucralfate [Carafate] 1 gm PO ACHS 30 Days #120 tab 06/15/24 Sucralfate [Sucralfate Oral Susp] 1 gm PO ACHS 30 Days #1200 ml 06/15/24 Allergies Allergy/AdvReac Type Severity Reaction Status Date / Time No Known Allergies Allergy Verified 06/13/24 05:36 Review of Systems ROS Statement: Those systems with pertinent positive or pertinent negative responses have been documented in the HPI. ROS Other: All systems not noted in ROS Statement are negative. Past Medical History Past Medical History: GERD/Reflux, Rheumatoid Arthritis (RA) Additional Past Medical History / Comment(s): See Cardiology H&P. Hypoglycemia, hx colon polyps, loop recorder placed after episode of v-tach 05/2019. then removed, Lyme Diease 06/13/24 History of Any Multi-Drug Resistant Organisms: None Reported Past Surgical History: Orthopedic Surgery Additional Past Surgical History / Comment(s): Bilateral knee arthroscopy, loop recorder placement. now removed, rt wrist carpal tunnel; Past Anesthesia/Blood Transfusion Reactions: No Reported Reaction Type of Cardiac Device: Loop Device Placement Date:: 2018 Past Psychological History: No Psychological Hx Reported Smoking Status: Never smoker Past Alcohol Use History: Rare Past Drug Use History: None Reported - Past Family History Mother Family Medical History: Cancer Additional Family Medical History / Comment(s): Breast cancer. Father Family Medical History: Cancer Additional Family Medical History / Comment(s): Brain tumor. Son(s) Family Medical History: Cancer Additional Family Medical History / Comment(s): Non-hodgkins lymphoma. General Exam - General Exam Comments Initial Comments: Physical Exam GENERAL: Patient is well-developed and well-nourished. Patient is nontoxic and well- hydrated and is in no distress. HENT: Normocephalic, Atraumatic. EYES: PERRL, EOMI PULMONARY: Unlabored respirations. No audible rales rhonchi or wheezing was noted. CARDIOVASCULAR: There is a regular rate and rhythm without any murmurs gallops or rubs. ABDOMEN: Soft and nontender with normal bowel sounds. SKIN: Skin is clear with no lesions or rashes and otherwise unremarkable. : Deferred NEUROLOGIC: Patient is alert and oriented x3. Moving all extremities spontaneously MUSCULOSKELETAL: Normal extremities with adequate strength and full range of motion. No lower extremity swelling or edema. No calf tenderness. PSYCHIATRIC: Normal psychiatric evaluation. Limitations: no limitations Course Vital Signs 06/15/24 06/15/24 03:31 06:13 Temperature 97.6 F Pulse Rate 62 57 L Respiratory 18 16 Rate Blood Pressure 132/79 124/78 O2 Sat by Pulse 100 96 Oximetry Medical Decision Making - Medical Decision Making Was pt. sent in by a medical professional or institution (, PA, HYDROTHERAPIST, urgent care, hospital, or [facility]...) When possible be specific @ -No Did you speak to anyone other than the patient for history (EMS, parent, family, police, friend...)? What history was obtained from this source @ -No Did you review nursing and triage notes (agree or disagree)? Why? @ -I reviewed and agree with nursing and triage notes Were old charts reviewed (outside hosp., previous admission, EMS record, old EKG, old radiological studies, urgent care reports/EKG's, [facility] records)? Report findings @ -'s ER visits and labs were reviewed Differential Diagnosis (chest pain, altered mental status, abdominal pain women, abdominal pain men, vaginal bleeding, weakness, fever, dyspnea, syncope, head ache, dizziness, GI bleed, back pain, seizure, CVA, palpatations, mental health)? @ -Differential Abdominal Pain Men: Appendicitis, cholecystitis, diverticulosis, ischemic bowel, pancreatitis, hepat itis, UTI, gastroenteritis, AAA, incarcerated hernia, bowel obstruction, constipation, inflammatory bowel, hepatitis, peptic ulcer disease, splenic infarction, perforated viscus, testicular torsion, this is not meant to be an all-inclusive list EKG interpreted by me (3pts min.). @ -As above X-rays interpreted by me (1pt min.). @ -None done CT interpreted by me (1pt min.). @ -None done U/S interpreted by me (1pt. min.). @ -None done What testing was considered but not performed or refused? (CT, X-rays, U/S, labs)? Why? @ -Imaging was discussed but not indicated What meds were considered but not given or refused? Why? @ -None Did you discuss the management of the patient with other professionals (professionals i.e. , PA, HYDROTHERAPIST, lab, RT, psych nurse, healthcare social worker, commodity lead, teacher, v/stol landing signal officer, child welfare caseworker)? Give summary @ -No Was smoking cessation discussed for >3mins.? @ -No Was critical care preformed (if so, how long)? @ -No Were there social determinants of health that impacted care today? How? (Homelessness, low income, unemployed, alcoholism, drug addiction, transpo rtation, low edu. Level, literacy, decrease access to med. care, residential, rehab)? @ -No Was there de-escalation of care discussed even if they declined (Discuss DNR or withdrawal of care, Hospice)? DNR status @ -No What co-morbidities impacted this encounter? (DM, HTN, Smoking, COPD, CAD, Cancer, CVA, ARF, Chemo, Hep., AIDS, mental health diagnosis, sleep apnea, morbid obesity)? @ -None Was patient admitted / discharged? Hospital course, mention meds given and route, prescriptions, significant lab abnormalities, going to OR and other pertinent info. @ -Discharge Workup was initiated in triage. Patient with burning epigastric pain. Labs were unremarkable, patient received a GI cocktail and had significant improvement in his discomfort he was able to sleep. Patient has previously been prescribed PPI I will recommend 2 weeks of Protonix twice daily and Carafate with meals and bedtime. Prescription for both liquid and tablet Carafate was ordered advised that the liquid is easier to use but sometimes cost prohibitive if he cannot obtain the liquid due to insurance coverage tablets are great second option. At this time patient is much more comfortable and agreeable to plan for discharge home he will see Dr. Cordova this week to discuss scope. Undiagnosed new problem with uncertain prognosis? @ -No Drug Therapy requiring intensive monitoring for toxicity (Heparin, Nitro, Insul in, Cardizem)? @ -No Were any procedures done? @ -No Diagnosis/symptom? @ -Gastric pain Acute, or Chronic, or Acute on Chronic? @ -Acute on chronic Uncomplicated (without systemic symptoms) or Complicated (systemic symptoms)? @ -Default Side effects of treatment? @ -No Exacerbation, Progression, or Severe Exacerbation? @ -No Poses a threat to life or bodily function? How? (Chest pain, [place], [place], pneumonia, PE, COPD, DKA, ARF, appy, cholecystitis, CVA, Diverticulitis, Homicidal, Suicidal, threat to staff... and all critical care pts) @ -No - Lab Data Result diagrams: 06/15/24 03:59 06/15/24 03:59 Lab Results 06/15/24 06/15/24 Range/Units 03:59 03:59 WBC 4.3 (3.8-10.6) k/uL RBC 4.16 L (4.30-5.90) m/uL Hgb 13.4 (13.0-17.5) gm/dL Hct 40.3 (39.0-53.0) % MCV 96.9 (80.0-100.0) fL MCH 32.3 (25.0-35.0) pg MCHC 33.3 (31.0-37.0) g/dL RDW 12.1 (11.5-15.5) % Plt Count 262 (150-450) k/uL MPV 7.7 Neutrophils % 54 % Lymphocytes % 27 % Monocytes % 10 % Eosinophils % 6 % Basophils % 1 % Neutrophils # 2.3 (1.3-7.7) k/uL Lymphocytes # 1.2 (1.0-4.8) k/uL Monocytes # 0.4 (0-1.0) k/uL Eosinophils # 0.3 (0-0.7) k/uL Basophils # 0.0 (0-0.2) k/uL Sodium 134 L (137-145) mmol/L Potassium 4.3 (3.5-5.1) mmol/L Chloride 102 (98-107) mmol/L Carbon Dioxide 25 (22-30) mmol/L Anion Gap 7 mmol/L BUN 15 (9-20) mg/dL Creatinine 0.67 (0.66-1.25) mg/dL Est GFR (CKD-EPI)AfAm >90 (>60 ml/min/1.73 sqM) Est GFR (CKD-EPI)NonAf >90 (>60 ml/min/1.73 sqM) Glucose 108 H (74-99) mg/dL Calcium 9.0 (8.4-10.2) mg/dL Total Bilirubin 0.6 (0.2-1.3) mg/dL AST 23 (17-59) U/L ALT 18 (4-49) U/L Alkaline Phosphatase 57 (38-126) U/L Total Protein 6.1 L (6.3-8.2) g/dL Albumin 3.6 (3.5-5.0) g/dL Lipase 32 (23-300) U/L Disposition Clinical Impression: Epigastric pain Disposition: HOME SELF-CARE Condition: Stable Instructions (If sedation given, give patient instructions): Abdominal Pain (ED) Prescriptions: Sucralfate [Carafate] 1 gm PO ACHS 30 Days #120 tab Pantoprazole Sodium [Protonix] 40 mg PO BID 14 Days #28 tab Sucralfate [Sucralfate Oral Susp] 1 gm PO ACHS 30 Days #1200 ml Is patient prescribed a controlled substance at d/c from ED?: No Referrals: Maciej Calzada MD [Primary Care Provider] - 1-2 days
[2024-06-15 06:20] VITALS: BP 124/78; PULSE 57; RESP 16
== END 2024-06-15 06:39 | disposition home or self-care (01) ==
LOC: EC 03:01
DX: R10.31 Right lower quadrant pain (principal)
CPT/HCPCS: 36415; 80053; 83690; 85025; 99283

== ENCOUNTER → 2024-07-14 | Outpatient (CLI) | payer MEDICARE ==
[2024-07-14 16:53] LABS: HCT 44.2 % (39.6-50.0); HGB 14.6 g/dL (13.0-17.0); MCV 96.9 FL (80.0-97.0); Mean Platelet Volume 11.4 FL (9.5-12.2); NRBC Per 100 WBC 0 X 10*3/uL (0.00-0.01); Platelet Count 182 X 10*3/uL (140-440); RBC 4.56 X 10*6/uL (4.40-5.60); RDW 13.3 % (11.5-14.5); WBC 4.96 X 10*3/uL (4.50-10.00)
[2024-07-14 17:09] LABS: Blood Urea Nitrogen 15.7 mg/dL (9.0-27.0); C Reactive Protein, High Sens 0.254 mg/L (0.000-3.000); Carbon Dioxide 26.4 mmol/L (21.6-31.8); Chloride 104 mmol/L (96-109); Potassium 4.7 mmol/L (3.5-5.5); Sodium 140 mmol/L (135-145)
[2024-07-14 17:16] LABS: Erythrocyte Sedimentation Rate 3 mm/Hr (0-20)
== END | disposition home or self-care (01) ==
LOC: LABWHC1 08:57
PROVIDERS: ATTEND Internal Medicine Clinical Cardiac Electrophysiology
DX: Z01.818 Encounter for other preprocedural examination
CPT/HCPCS: 36415; 80051; 82565; 84520; 85027; 85652; 86141

== ENCOUNTER 2024-07-16 13:19 | Day surgery (SDC) | payer MEDICARE ==
[2024-07-16] MEDS ORDERED: PROPOFOL 10 MG/ML 20 ML VIAL IV ONE (14:14)
[2024-07-16] MEDS ORDERED: MIDAZOLAM 2 MG/2 ML VIAL ONE (14:14)
[2024-07-16] MEDS ORDERED: fentaNYL (PF) 50 MCG/ML 2 ML AMP ONE (14:14)
[2024-07-16] MEDS: SODIUM CHLORIDE 0.9% 1,000 ML IV SCH (14:16)
[2024-07-16] MEDS: IV FLUID CONTINUATION 1,000 ML IV ONE (14:16)
[2024-07-16 14:46] VITALS: RESP 16
[2024-07-16] MEDS: VANCOMYCIN 1,250 MG in SODIUM CHLORIDE 0.9% 250 ML IVPB ONE (14:49)
[2024-07-16] MEDS: ceFAZolin 1 GM in SODIUM CHLORIDE 0.9% IRRIG BTL 250 ML IRRIGATION PRN (14:51)
[2024-07-16] MEDS: IOPAMIDOL-300 100ML BTL INJ ONE (15:02)
[2024-07-16] MEDS: IOPAMIDOL-370 100ML BTL INJ ONE (15:02)
[2024-07-16] MEDS: LIDOCAINE 1% INJ 10MG/ML (20 ML MDV) ONE (15:05)
[2024-07-16] MEDS: ROPIVACAINE 5 MG/ML 30 ML VIAL MISCELLANE ONE ×2 (15:08→15:23)
--- NOTE | 2024-07-16 17:36 | P.EPPROC ---
- EP Procedure Note Electrophysiology Procedure Note: Diagnosis Atrial and RV lead malfunction First rib-left clavicle space is tight likely subclavian crush despite a lateral axillary vein access Underlying sick sinus syndrome with syncope as the original reason for pacemaker plantation Final diagnosis Successful extraction of the chronic atrial lead Successful extraction of the chronic RV lead Successful implantation of new atrial lead in the right atrial appendage, ULTIPACE LPA 1231, Villagran Successful implantation of a left bundle pacing lead, Medtronic model #330 Paced QRS had a right bundle branch block pattern, QRS width 133 ms, stimulus- peak of V6 = 63 ms Details Patient was brought to the EP lab in a fasting state. Written informed consent was obtained prior to the procedure the left pectoral area was prepped and draped as a protocol IV antibiotics including IV vancomycin administered. A venogram was performed with the fluoroscopic marker on the incision site Incision was then made directly at the previous surgical site and carried down to the level of the generator. The chronic generator was explanted and later reused since it and adequate battery life Partial capsulectomy was performed a more medial subfascial pocket was made The chronic atrial and ventricular lead suture sites for the leads sleeves were freed. The leads were freed from the capsule A stylette was placed in the lumen of each, the lead unscrewed and with gradual traction both leads were removed from the right heart sequentially. Their acces s sites were oversewn to prevent back bleeding. Access was obtained in a very parallel orientation to the axillary vein 1 access obtained at the second rib level The second access obtained at the first rib level A 52 cm atrial pacing lead was first positioned in the RV apex for temporary pacing during mapping and conduction system pacing Thresholds were interrogated and backup high output pacing was provided A deflected sheath was prepped. A coronary sinus decapolar catheter was placed within this sheath. The catheter along with the sheath was then passed into the right heart, the catheter was prolapsed across the tricuspid valve, into the right ventricle and then further into the right ventricular outflow tract across the pulmonic valve into the pulmonary artery. This sheath was slid over this decapolar catheter into the RVOT. Thereafter the catheter last sheath assembly was withdrawn from the RVOT along the septum to the mid septal area. The sheath was appropriately to to map the right ventricular aspect of the septum. The decapolar catheter was withdrawn, the sheath flushed again and the screw-in pacing lead placed within the sheath. Further detailed unipolar pace-mapping of the septum was performed and once the appropriate based morphology was obtained on lead V1, the lead was screwed into the septum. The lead was screwed in 4-5 returns at a time while monitoring the current of injury, the pacing impedance changes and the paced QRS morphology. The stimulus to peak of V6 QRS was measured at each step. Once a QR or rSR pattern of paced QRS in lead V1 was obtained, a left bundle signal was sought. Impedance was measured and thresholds were measured. An impedance drop of 100-200 ohms but above 550 ohms was targeted along with an unchanged vector of the current of injury signal. The final positioning was based on the QRS morphology in lead V1 and a short stimulus to peak of the V6 QRS of less than 63 ms. The sheath was withdrawn, stability of the pacing lead deep in the septum was confirmed on ANGULO and NIKKI views and the sheath was slipped and an adequate heel was provided for the lead. Unipolar and bipolar electrogram morphology obtained An attempt was made to place the Velocifytronic 58 cm fix screw lead. However the sheath assembly was too short for this patient and would not reach the right atrial appendage. Therefore this was abandoned and an Villagran lead ULTIPACE atrial lead positioned in the right atrial appendage. Sensing, thresholds and impedances measured following positioning and securing the lead in the right atrial appendage Left bundle lead parameters R waves 5 mV, pacing threshold 0.3 V at 0.4 ms and pacing impedance 830 ohms. Paced morphology was right bundle branch block pattern, stimulus-peak of V6 was 63 ms and total QRS width was 133 ms Atrial lead parameters: Atrial pacing threshold 0.8 V at 0.4 ms, P waves 2.2 mV and pacing impedance 440 ohms Device practice business asst: [employer] MRI model #2272 pacemaker. The old pacemaker generator was used Dual-chamber pacemaker device connected to the leads and placed in the new medially located subfascial pocket Patient tolerated the procedure well without acute complications Pacemaker programming: DDD 50, VIP on Left bundle lead programmed to unipolar pacing mode with bipolar sensing Patient tolerated procedure well without any acute complications
[2024-07-16] MEDS: ACETAMINOPHEN IV (For NPO) 1,000 MG in EMPTY BAG 1 BAG IVPB ONE (18:51)
[2024-07-16] MEDS: ATORVASTATIN 20 MG TAB PO SCH (19:57)
[2024-07-17] MEDS: ACETAMINOPHEN TAB 325 MG TAB PO PRN (01:55)
--- NOTE | 2024-07-17 08:09 | XR ---
EXAMINATION TYPE: XR chest 2V DATE OF EXAM: 07/17/2024 COMPARISON: 12/04/2022 TECHNIQUE: PA and lateral views submitted. HISTORY: Lead placement check FINDINGS: The lungs are clear and there is no pneumothorax, pleural effusion, or focal pneumonia. Heart size normal and no overt failure. Osseous structures demonstrate hypertrophic and degenerative changes of the spine. A cardiac device is seen with cardiac leads. Underlying emphysematous changes with biapica l pleural thickening. A proximal lead overlies the right atrium and distal lead overlies the right ve ntricle. Hyperinflation suggests COPD or asthma. IMPRESSION: 1. Cardiac leads appear in good position with no sizable pneumothorax. 2. COPD.
[2024-07-17 08:21] VITALS: BP 114/69; PULSE 57; TEMP 97.5
--- NOTE | 2024-07-17 09:58 | P.DS ---
Providers Date of admission: 07/16/24 Attending physician: Demetrius Nickerson Primary care physician: Maciej Calzada MD Hospital Course: The patient is a 68-year-old male who follows in the office with Dr. Oneill. Patient had atrial and RV lead malfunction and therefore underwent laser lead extraction with new atrial lead and left bundle pacing lead. Old generator was used. Patient feels well and is up ambulating around the room. He has having some mild discomfort at device site. No shadowing on the dressing. Chest x-ray shows stable cardiac leads with no pneumothorax GENERAL: Well-appearing, well-nourished and in no acute distress. NECK: Supple without JVD or thyromegaly. LUNGS: Breath sounds clear to auscultation bilaterally. Respiration equal and unlabored. No wheezes, rales or rhonchi. HEART: Regular rate and rhythm without murmurs, rubs or gallops. S1 and S2 heard. Left anterior device site is clean dry and intact. No shadowing EXTREMITIES: Normal range of motion, no edema. No clubbing or cyanosis. Peripheral pulses intact and strong. IMPRESSION: Sick sinus syndrome Status post permanent pacemaker Atrial and RV lead malfunction, status post lead extraction and replacement PLAN: No change in medication regimen Tylenol for pain as needed Patient may be discharged for outpatient follow-up with device clinic in 1 week I am dictating on behalf of Dr Demetrius Nickerson's history/physical and assessment/plan. Plan - Discharge Summary Discharge Rx Participant: No New Discharge Prescriptions: No Action Rosuvastatin Calcium 10 mg PO HS Probiotics 1 tab PO DAILY Discharge Medication List Rosuvastatin Calcium 10 mg PO HS 11/29/22 [History] Probiotics 1 tab PO DAILY 07/15/24 [History]
== END 2024-07-17 11:14 | disposition home or self-care (01) ==
LOC: CATHEP 13:19 → 6NMEDSUR 17:00 → CATHEP 07-17 11:14
PROVIDERS: ATTEND Internal Medicine Clinical Cardiac Electrophysiology
DX: Z45.018 Encounter for adjustment and management of other part of cardiac pacemaker (principal); I49.5 Sick sinus syndrome; J44.9 Chronic obstructive pulmonary disease, unspecified; R47.1 Dysarthria and anarthria; E78.5 Hyperlipidemia, unspecified; I45.10 Unspecified right bundle-branch block; T82.110A Breakdown (mechanical) of cardiac electrode, initial encounter; Z95.0 Presence of cardiac pacemaker; Z79.899 Other long term (current) drug therapy; I47.20 Ventricular tachycardia, unspecified
CPT/HCPCS: 33217; 33235; 71046; 86850; 86900; 86901; 93005

== ENCOUNTER → 2024-10-30 | Outpatient (CLI) | payer MEDICARE ==
[2024-10-30 19:07] LABS: ALT 18 U/L (10-49); AST 22 U/L (14-35); Albumin 4.5 g/dL (3.8-4.9); Albumin/Globulin Ratio 2.05 Ratio (1.60-3.17); Alkaline Phosphatase 63 U/L (41-126); BUN/Creat Ratio 24.78 Ratio (12.00-20.00); Blood Urea Nitrogen 22.3 mg/dL (9.0-27.0); Calcium 9.4 mg/dL (8.7-10.3); Carbon Dioxide 26.5 mmol/L (21.6-31.8); Chloride 102 mmol/L (96-109); Globulin 2.2 g/dL (1.6-3.3); Glucose 73 mg/dL (70-110); LDL Cholesterol,Calculated 74.9 mg/dL (0.0-131.0); Potassium 4.7 mmol/L (3.5-5.5); Sodium 138 mmol/L (135-145); Total Bilirubin 0.4 mg/dL (0.3-1.2); Total Protein 6.7 g/dL (6.2-8.2); VLDL Calculation 14.96 mg/dL (5.00-40.00)
== END | disposition home or self-care (01) ==
LOC: LABWHC1 12:46
PROVIDERS: ATTEND Internal Medicine Clinical Cardiac Electrophysiology
DX: I49.5 Sick sinus syndrome (principal); I47.29 Other ventricular tachycardia; I47.20 Ventricular tachycardia, unspecified; E10.9 Type 1 diabetes mellitus without complications; E78.5 Hyperlipidemia, unspecified
CPT/HCPCS: 36415; 80053; 80061; 84443